=== PATIENT | female | born 1955 | race Caucasian/White ===

== ENCOUNTER 2021-04-12 17:56 | Emergency (ER) | payer MEDICARE, SELFPAY ==
--- NOTE | ~2021-04-12 | XR_ITS ---
XR tibia fibula RT 2V DATE: 04/12/2021 18:21 INDICATION: Fall. Lower tibial and fibular pain TECHNIQUE: AP and lateral views COMPARISON: None FINDINGS: There is a linear oblique fracture of the distal fibular shaft with approximately one corti bernice width lateral displacement. There is a transverse fracture of the medial malleolus, with minimal displacement. The posterior mall eolus appears intact and the ankle mortise appears preserved. There is soft tissue swelling at the an kle. Prominent posterior and plantar calcaneal enthesopathy. IMPRESSION: Distal fibular shaft and medial malleolar fractures Reviewed, dictated and finalized at location A.
--- NOTE | ~2021-04-12 | XR_ITS ---
XR ankle RT 2V DATE: 04/12/2021 18:21 INDICATION: Injury, pain TECHNIQUE: 2 views, portable technique COMPARISON: None FINDINGS: Linear oblique distal fibular shaft fracture with approximately 1 cortical width lateral di splacement. Minimally displaced medial malleolar fracture. There is generalized soft tissue swelling of the ankle. The ankle mortise appears intact. Prominent plantar and posterior calcaneal enthesopathy. IMPRESSION: Distal fibular shaft and medial malleolar fractures Reviewed, dictated and finalized at location A.
[2021-04-12 17:58] VITALS: BP 193/99; PULSE 94; RESP 20; TEMP 36.8; O2SAT 97
--- NOTE | 2021-04-12 18:13 | ED.LOWEXIN ---
HPI - Extremity Injury (Lower) General Chief Complaint: Extremity Injury, Lower Stated Complaint: FALL/ RLE PAIN Time Seen by Provider: 04/12/21 18:03 Source: patient Mode of arrival: EMS Limitations: no limitations History of Present Illness HPI Narrative: This is a 65 year old female that presents to the ER for right ankle pain after an injury today. Reports she slipped in the mud at her house and landed on her bottom. Reports she felt a pop in her right lower extremity. Since she has had pain of the lower leg and ankle. Denies hitting her head, loss of consciousness, other injuries, or numbness. Related Data Allergies Allergy/AdvReac Type Severity Reaction Status Date / Time morphine Allergy Unknown Nausea And Verified 06/09/20 11:57 Vomiting cefadroxil Allergy Unknown Verified 04/12/21 18:50 naloxone [From Talm[facility]isa NX] Allergy Unknown Verified 04/12/21 18:50 pentazocine Allergy Unknown Verified 04/12/21 18:50 Review of Systems Review of Systems: Narrative: CONSTITUTIONAL: Denies fever MUSCULOSKELETAL: Reports joint pain and myalgia. Denies back pain NEUROLOGIC: Denies numbness, or weakness. All systems reviewed & are unremarkable except as noted in HPI and below PMFSH Surgical History Surgical History (Updated 04/12/21 @ 18:16 by Henny Lincoln PA-C) History of hysterectomy History of tonsillectomy Family History Family History (System 06/09/20 @ 11:57 by Viv Cooley) Mother Family history of thyroid disease Hypertension Family history of arthritis Family history of congestive heart failure Social History Social History (System 06/09/20 @ 11:57 by Viv Cooley) Smoking status: Heavy tobacco smoker Alcohol intake: current Exam Narrative: Exam Narrative: GENERAL: Well-appearing, well-nourished, and in no acute distress. HEAD: Normocephalic, atraumatic. EYES: PERRLA and EOMI. ENT: Nares clear, no rhinorrhea or epistaxis. Mucous membranes moist. Oropharynx without tonsillar hypertrophy exudate or other lesions. NECK: Supple. No adenopathy or masses. No midline spinal tenderness CHEST: Clear to auscultation. No respiratory distress. No wheezes rales or rhonchi HEART: Regular rate and rhythm. No murmur heard. Normal peripheral pulses. BACK: No midline thoracic or lumbar spine tenderness EXTREMITIES: Normal range of motion. No edema or obvious deformity. Normal DP pulses. Normal sensation SKIN: Warm, dry, no rash. NEURO: No focal deficits. Alert and oriented x3. PSYCH: Normal mood and affect Course Vital Signs Vital signs: Vital Signs Temperature 98.3 F 04/12/21 17:58 Pulse Rate 94 04/12/21 17:58 Respiratory Rate 20 04/12/21 17:58 Blood Pressure 193/99 H 04/12/21 17:58 Pulse Oximetry 97 04/12/21 17:58 Temperature 98.3 F 04/12/21 17:58 Pulse Rate 94 04/12/21 17:58 Respiratory Rate 20 04/12/21 17:58 Blood Pressure 193/99 H 04/12/21 17:58 Pulse Oximetry 97 04/12/21 17:58 Procedures Orthopedic Splinting/Casting Injury #1: Splinting/Casting Date: 04/12/21 Splinting/Casting Time: 19:13 Side: right Lower Extremity Injury Location: ankle Lower Extremity Immobilizer: posterior splint Splint: customized in ED OCL: posterior Pre-Procedure Neuro Vascular Exam: normal Post-Procedure Neuro Vascular Exam: normal MDM - Extremity Injury (Lower) MDM Narrative Medical decision making narrative: Patient presents to the emergency department for right ankle pain after an injury today. Denies hitting her head or loss of consciousness. She is neurovascularly intact. Right ankle and tib-fib x-rays show distal fibular fracture and medial malleolar fracture. Reports she has a walker that she can use at home. Patient placed in short leg posterior will be given orthopedics for follow-up. She is stable and felt appropriate for further outpatient evaluation. She was given warnings to return to the ER
== END 2021-04-12 19:34 | disposition home or self-care (01) ==
PROVIDERS: Emergency Provider Emergency Medicine; PCP Internal Medicine
DX: S82.831A Other fracture of upper and lower end of right fibula, initial encounter for closed fracture (principal); S82.51XA Displaced fracture of medial malleolus of right tibia, initial encounter for closed fracture; W01.0XXA Fall on same level from slipping, tripping and stumbling without subsequent striking against object, initial encounter
CPT/HCPCS: 29515; 73590; 73600; 99284

== ENCOUNTER → 2022-05-24 14:17 | Outpatient (CLI) | payer MEDICARE, SELFPAY ==
--- NOTE | ~2022-05-24 | MR_ITS ---
EXAMINATION: MR shoulder LT wo con DATE: 05/24/2022 15:01 INDICATION: Left shoulder pain TECHNIQUE: Magnetic resonance imaging (MRI) of the left shoulder was performed without intravenous co ntrast. Sequences included axial PD-weighted FS FSE, coronal oblique PD-weighted FS FSE, coronal obli que T2-weighted FS FSE, sagittal PD-weighted FS FSE, and sagittal T1-weighted SE. COMPARISON: None. FINDINGS: Coracoacromial arch: The acromion undersurface is curved in morphology (type II). Small anterior subacromial spur at the a cromial insertion of the normal coracoacromial ligament. Moderate acromioclavicular osteoarthritis. Rotator cuff: Mild to moderate supraspinatus and mild infraspinatus tendinopathy. There is articular sided tear ext ending 12 mm AP along the superior facet footplate of the supraspinatus which involves approximately one half of the tendon thickness. The tear margin is retracted approximately 1.5 cm medial from the f ootplate. At the posterior margin of the tear there is a tiny full-thickness perforation with minute tract of fluid signal extending across the bursal side of the tendon. The teres minor tendon and subs capularis tendons are normal. Normal rotator cuff muscle bulk and signal. Biceps tendon, glenoid labrum and glenohumeral cartilage: Long head of the biceps tendon is normal. There is a small tear with linear increased intrasubstance signal at the 12:00 position of the glenoid labrum. The inferior labrum is diminutive with small anamaria inal osteophytes replacing portions labrum at the anteroinferior and inferior glenoid. Mild partial-t hickness cartilage loss with smooth chondral surface along the cephalad aspect of the glenoid. Fluid: Small glenohumeral joint effusion with proportional of fluid extending to the long head biceps tendon sheath. No loose osteochondral bodies. Small amount of fluid in the subacromial/subdeltoid bursa whi ch could be due to either bursitis or decompression of the glenohumeral fluid through the suspected f ull-thickness perforation of the rotator cuff. Bones: There is prominent marrow edema in the proximal metaphyseal region of the humerus surrounding a linea r low signal intensity nondisplaced fracture line, a significant portion which parallels the physis s car. Subtle cortical interruption and angulation as seen at the posterior metaphyseal region. There i s mild periosteal edema along the proximal metadiaphyseal region of the humerus. Marrow signal is oth erwise normal. IMPRESSION: 1. Nondisplaced fracture at the proximal metaphysis of the left humerus. 2. Small moderate severity partial-thickness articular sided tear along the superior facet footplate of the supraspinatus tendon with tiny likely full-thickness component of the tear at the posterior ma rgin of the tear. 3. Mild glenohumeral osteoarthritis with likely chronic degeneration degeneration along the inferior glenoid labrum and very small tear at the superior labrum. 4. Moderate acromioclavicular osteoarthritis. Reviewed, dictated and finalized at location B. IMPRESSION: 1. Nondisplaced fracture at the proximal metaphysis of the left humerus. 2. Small moderate severity partial-thickness articular sided tear along the sup erior facet footplate of the supraspinatus tendon with tiny likely full-thickne ss component of the tear at the posterior margin of the tear. 3. Mild glenohumeral osteoarthritis with likely chronic degeneration degenerati on along the inferior glenoid labrum and very small tear at the superior labrum . 4. Moderate acromioclavicular osteoarthritis.
== END ==
PROVIDERS: PCP Internal Medicine; Visit Provider Orthopaedic Surgery
DX: M19.012 Primary osteoarthritis, left shoulder (principal); M75.102 Unspecified rotator cuff tear or rupture of left shoulder, not specified as traumatic; S42.302A Unspecified fracture of shaft of humerus, left arm, initial encounter for closed fracture
CPT/HCPCS: 73221

== ENCOUNTER → 2022-06-05 11:47 | Outpatient (CLI) | payer MEDICARE, SELFPAY ==
--- NOTE | ~2022-06-05 | CT_ITS ---
EXAMINATION: CT diagnostic chest wo con DATE: 06/05/2022 12:02 INDICATION: Pulmonary nodule TECHNIQUE: Computed tomography (CT) of the chest was performed without intravenous contrast. The dose -length product (DLP) was 241.43 mGy-cm. Automated exposure control and iterative reconstruction tech nique were employed. COMPARISON: None FINDINGS: There is a 7 mm nodule in the medial aspect of the right lower lobe on image 76. There is m ild dependent atelectasis. The lungs are free of focal airspace opacities. Mild emphysema is noted. N o pathologically enlarged thoracic lymph nodes are identified. The heart size is normal. There is bernice cified coronary artery atherosclerosis. There are bilateral breast implants with collapse of the left breast implant. There is moderate thoracic spondylosis. IMPRESSION: 1. 7 mm nodule of the right lower lobe. Recommend correlation with any available prior imaging. If no ne is available, follow-up CT in 6-12 months is recommended. Reviewed, dictated and finalized at location B. IMPRESSION: 1. 7 mm nodule of the right lower lobe. Recommend correlation with any availabl e prior imaging. If none is available, follow-up CT in 6-12 months is recommend ed.
== END ==
PROVIDERS: PCP Internal Medicine
DX: R91.1 Solitary pulmonary nodule (principal); F17.210 Nicotine dependence, cigarettes, uncomplicated
CPT/HCPCS: 71250

== ENCOUNTER → 2022-12-27 12:57 | Outpatient (CLI) | payer MEDICARE, SELFPAY ==
--- NOTE | ~2022-12-27 | DEXA_ITS ---
Bone Density Report Name: MAHSA SAUCEDA Age: 67 Sex: Female Ethnicity: White Date of : 1955 Indication: postmenopausal; screening for osteoporosis; height loss; prior fracture; hysterectomy; Referring Provider: CELESTINO, [facility]ANIS [facility] Study: Bone densitometry was performed. Exam Date: December 27, 2022 Accession number: [id number] Bone Density: Region BMD T-score Z-score Classification AP Spine (L1, L3, L4) 1.155 0.9 2.9 Normal Femoral Neck (Left) 0.755 -0.9 0.8 Normal Total Hip (Left) 0.892 -0.4 1.0 Normal Femoral Neck (Right) 0.690 -1.4 0.3 Osteopenia Total Hip (Right) 0.873 -0.6 0.8 Normal Total Hip Mean 0.883 -0.5 0.9 Normal World Health Organization criteria for BMD impression classify patients as: Normal (T-score at or above -1.0), Osteopenia (T-score between -1.0 and -2.5), or Osteoporosis (T-score at or below -2.5). 10-year Fracture Risk(1): Major Osteoporotic Fracture 14% Hip Fracture 2.6% Reported Risk Factors: [place] (), Neck BMD=0.690, BMI=36.7, previous fracture, smoking (1) FRAX(R) Version 3.08. Fracture probability calculated for an untreated patient. Fracture probability may be lower if the patient has received treatment. Clinical Information Provided by Patient: Has had a low trauma fracture Smokes Has used the following medications: Calcium, vit D included in calcium Has the following medical conditions: Hysterectomy Patient maximum height was 66 Menopause Age: 41 No regular weight bearing exercise Does not regularly consume dairy products Drinks caffeinated beverages Onset of menses at age 9 Number of children 1 Impression: The patient has low bone mass, based on the Right Femoral Neck T-score. The patient has an estimated ten-year risk of hip fracture of 2.6% and an estimated ten-year risk of major fracture of 14%, based on the WHO FRAX algorithm. The patient has risk factors, including: smoking, previous fracture. Discussion: BONE DENSITY IS LOW AT ONE OR MORE SKELETAL SITES. This patient's lowest T-score is low at one or more skeletal sites. It meets the World Health Organization's (WHO) criteria for ?low bone mass? (T-score between -1.0 and -2.5). The patient's 10-year risk of fracture as calculated by FRAX is less than the threshold where pharmacological therapy is recommended by the National Osteoporosis Foundation (NOF). However, all treatment decisions require clinical judgment and consideration of individual patient factors, including patient preferences, comorbidities, previous drug use, risk factors not captured in the FRAX model (e.g., frailty, falls, vitamin D deficiency, increased bone turnover, interval significant decline in bone density) and possible under or overestimation of fracture risk by FRAX. The patient should follow
== END ==
PROVIDERS: PCP Internal Medicine; Visit Provider Internal Medicine
DX: Z13.820 Encounter for screening for osteoporosis (principal); M85.851 Other specified disorders of bone density and structure, right thigh
CPT/HCPCS: 77080

== ENCOUNTER → 2023-05-30 08:46 | Outpatient (CLI) | payer MEDICARE, SELFPAY ==
--- NOTE | ~2023-05-30 | CT_ITS ---
EXAMINATION: CT abdomen pelvis w con DATE: 05/30/2023 09:19 INDICATION: Right lower quadrant abdominal pain TECHNIQUE: Computed tomography (CT) of the abdomen and pelvis was performed with 100 CC Omnipaque 350 intravenous contrast. Automated exposure control and iterative reconstruction technique were employe d. Exam dose: 1036.90 mGy-cm total exam DLP. COMPARISON: None. FINDINGS: There is very prominent up to approximately 2.8 by 4.5 cm dense calcification on the upperm ost axial image, in the lower aspect of the right breast. Mammographic correlation is recommended. Normal heart size. No pericardial or pleural effusion. The lung bases are clear. Minimal bilateral lower lobe dependent atelectasis. The liver, gallbladder, bile ducts, spleen, pancreas, pancreatic duct and adrenal glands are unremark able. Several up to 4 mm probable right renal cysts, too small to definitively characterize. Approximately 5.7 mm lower pole left renal cyst. No urinary tract calculus or hydroureteronephrosis. The urinary bladder is unremarkable. Status post hysterectomy. There is extensive abdominal aortic and iliac arterial calcifications; no abdominal aortic aneurysm. No intraperitoneal or retroperitoneal or pelvic mass lesion or adenopathy or ascites. Normal appendix. Diverticulosis of left and right colon; no CT evidence of diverticulitis. There is a prominent amount of fecal material in the rectum and colon. No bowel obstruction, bowel wall thicken ing, pneumatosis or intraperitoneal free air is detected. Small fat-containing umbilical hernia. There is degenerative spurring and disc disease in the lower thoracic spine and multilevel degenerati ve disc disease of the lumbar spine, most severe at L3-4, severe at L2-3 with associated mild retroli sthesis. There is moderately severe degenerative disc disease at L5-S1. There is prominent degenerative change at the apophyseal joints of the lumbar spine, with associated grade 1 anterolisthesis at L5-S1. There is no apparent cysts tissue is osteolytic or osteoblastic lesion. IMPRESSION: Normal appendix Diverticulosis of the colon; no evidence of diverticulitis Status post hysterectomy Bilateral small renal cysts Large calcification in the lower right breast; mammographic correlation is recommended Reviewed, dictated and finalized at Location A. Reviewed, dictated and finalized at location B. IMPRESSION: Normal appendix Diverticulosis of the colon; no evidence of diverticulitis Status post hysterectomy Bilateral small renal cysts Large calcification in the lower right breast; mammographic correlation is lizeth mmended
[2023-05-30 09:09] LABS: Estimated Glomerular Filt Rate > 60
== END ==
PROVIDERS: PCP Internal Medicine; Visit Provider Internal Medicine
DX: R10.31 Right lower quadrant pain (principal); M25.561 Pain in right knee; K57.30 Diverticulosis of large intestine without perforation or abscess without bleeding; N28.1 Cyst of kidney, acquired
CPT/HCPCS: 73564; 74177; Q9967

== ENCOUNTER 2025-02-05 11:57 | Emergency (ER) | payer MEDICARE, SELFPAY ==
[2025-02-05] VITALS (7 sets, daily range): BP systolic 136–208; BP diastolic 67–101; PULSE 68–75; RESP 11–15; TEMP 36.7; O2SAT 99–100
--- NOTE | ~2025-02-05 | XR_ITS ---
XR chest 2V 02/05/2025 13:12 Indication: Weakness Procedure: 2 view chest Comparison: No prior studies for comparison. Findings: Heart size normal. No focal air space disease, pulmonary edema, pleural effusion or suspect ed pneumothorax. There is a calcified right breast implant. There is dextroscoliosis of the thoracic spine. Impression: 1: No acute cardiopulmonary disease. Reviewed, dictated and finalized at location A. Impression: 1: No acute cardiopulmonary disease.
--- NOTE | 2025-02-05 12:14 | ECG_ITS ---
Test Date: 2025-02-05 12:19:24 Measurements Intervals [place] Rate: 69 P: 54 SC: 196 QRS: 10 QRSD: 90 T: 44 QT: 391 QTc: 420 Interpretive Statements SINUS RHYTHM WITH OCCASIONAL VENTRICULAR PREMATURE COMPLEXES No previous ECG available for comparison Electronically Signed On 02-05-2025 14:36:41 CDT by Yandel Baron M.D.
[2025-02-05 12:23] LABS: Basophils Percent Auto 0.4 % (0.2-1.2); Eosinophils Absolute Auto 0.1 K/mm3 (0-0.3); Eosinophils Percent Auto 1.2 % (0-4.4); Hematocrit 37.9 % (37.0-47.0); Immature Granulocyte Absolute 0.04 K/mm3 (0.00-0.031); Immature Granulocyte Percent A 0.4 % (0-0.5); Lymphocytes Absolute Auto 2.25 K/mm3 (0.9-3.2); Lymphocytes Percent Auto 22.6 % (18.3-44.2); Mean Corpuscular HGB Conc 34.3 g/dl (32-36); Mean Corpuscular Hemoglobin 30.8 pg (26-34); Mean Corpuscular Volume 89.8 fl (80-100); Mean Platelet Volume 8.8 fl (7.4-10.4); Monocytes Absolute Auto 0.5 K/mm3 (0.1-0.6); Neutrophils Percent Auto 70.4 % (45.5-73.1); Platelet Count Result 253 k/mm3 (150-375); Red Blood Count 4.22 M/mm3 (4.2-5.4); Red Cell Distribution Width 12.3 % (11.5-14.5); White Blood Count 9.9 K/mm3 (4.5-10.0)
--- NOTE | 2025-02-05 12:25 | PC.NURSE ---
Patient was able to walk from EMS stretcher to ER bed without difficulty.
[2025-02-05 12:32] LABS: Alanine Aminotransferase 21 U/L (6-35); Albumin Level 4.4 g/dL (3.5-5.1); Alkaline Phosphatase 78 U/L (38-126); Anion Gap 12 mmol/L (4-12); Aspartate Amino Transferase 24 U/L (14-36); Bilirubin,Total 0.7 mg/dL (0.2-1.3); Blood Urea Nitrogen 11 mg/dL (7-17); Calcium 9.4 mg/dL (8.4-10.2); Carbon Dioxide 25 mmol/L (22-30); Chloride 92 mmol/L (98-107); Estimated CRCL calculation 78 ml/min; Estimated Glomerular Filt Rate > 60; Glucose 144 mg/dL (65-110); Potassium 3.7 mmol/L (3.4-5.0); Sodium 129 mmol/L (137-145)
--- OUTSIDE RECORDS SUMMARY | 2025-02-05 13:43 | XMS_ITS | Encounter Summary ---
Author Organization [facility] Address [address] [place] [address] Care Team Providers Care Inorganic Chemical Technician Name Role Phone Ora Senior MD Primary Care Provider [phone] Pa Llanos MD Primary Care Provider [phone] Allie Martin MD Primary Care Provider [phone] Allie Martin MD Unavailable [phone] Juan Flores MD Unavailable Unavailable Latisha Slater ENGAGEMENT LIAISON-SHANK PINNER Unavailable [phone] Ora Senior MD Unavailable [phone] Encounter Details Date Type Department Care Team (Late st Contact Info) Description 08/24/2016 Lab Requisition [facility] [address] [place] [address] Unknown, Provider Social History Tobacco Use Types Packs/Day Years Used Date Smoking Tobacco: Never Assessed Sex and Gender Information Value Date Recorded Sex Assigned at Not on file Gender Identity Not on file Sexual Orientation Not on file documented as of this encounter Plan of Treatment Not on file documented as of this encounter Procedures Procedure Name Priority Date/Time Associated Diagnosis Comments RUBEOLA ANTIBODY IGG Routine 08/24/2016 9:10 AM CDT MUMPS ANTIBODY IGG Routine 08/24/2016 9: 10 AM CDT VARICELLA ZOSTER ANTIBODY IGG Routine 08/24/2016 9:10 AM CDT RUBELLA ANTIBODY IGG Routine 08/24/2016 9:10 AM CDT documented in this encounter Results * VARICELLA ZOSTER ANTIBODY IGG (08/24/2016 9:10 AM CDT) [facility] Varicella zoster Virus Antibody IgG 532 Immune >165 index 08/26/2016 12:09 PM CDT [facility] ([facility]) Comment: Negative <135 Equivocal 135 - 165 Positive >165 A positive result generally indicates exposure to the pathogen or administration of specific immunoglobulins, but it is not indication of active infection or stage of disease. Blood BLOOD SPECIMEN / Unknown Venipuncture / Unknown 08/24/2016 9:10 AM CDT 08/24/2016 7:01 PM CDT [facility] - 08/26/2016 12:09 PM CDT Performed at: [address] [place] [id number] Transportation Clerk: Pancho Alvarez PhD, Phone: [phone] Provider Unknown LAB - CHEMISTRY SVEN MELENDEZ [facility] ([facility]) [address] [place] [address] * RUBEOLA ANTIBODY IGG (08/24/2016 9:10 AM CDT) [facility] Measles (Rubeola) Antibody IgG 147.0 Immune >29.9 AU/mL 08/26/2016 12:09 PM CDT [facility] ([facility]) Comment: Negative <25.0 Equivocal 25.0 - 29.9 Positive >29.9 Presence of antibodies to Rubeola is presumptive evidence of immunity except when acute infection is suspected. Blood BLOOD SPECIMEN / Unknown Venipuncture / Unknown 08/24/2016 9:10 AM CDT 08/24/2016 7:01 PM CDT [facility]) - 08/26/2016 12:09 PM CDT Performed at: [address] [place] [id number] Transportation Clerk: Pancho Alvarez PhD, Phone: [phone] Provider Unknown LAB - CHEMISTRY SVEN MELENDEZ Performing Organization Address City/[facility]/ZIP Co de Phone Number [facility] ([facility]) [address] [place] [address] * MUMPS ANTIBODY IGG (08/24/2016 9:10 AM CDT) [facility] Mumps Virus Antibody IgG Index 289.0 Immune >10.9 AU/mL 08/26/2016 12:09 PM CDT [facility] ([facility]) Comment: Negative <9.0 Equivocal 9.0 - 10.9 Positive >10.9 A positive result generally indicates past exposure to Mumps virus or previous vaccination. Blood BLOOD SPECIMEN / Unknown Venipuncture / Unknown 08/24/2016 9:10 AM CDT 08/24/2016 7:01 PM CDT Narrative [facility] ([facility]) - 08/26/2016 12:09 PM CDT Performed at: [address] [place], [place] [id number] [place], [place] [id number] Transportation Clerk: Pancho Alvarez PhD, Phone: [phone] Provider Unknown LAB - CHEMISTRY SVEN MELENDEZ Performing Organization Address City/[facility] Co de Phone Number [facility] ([facility]) [address] [place] [address] * RUBELLA ANTIBODY IGG (08/24/2016 9:10 AM CDT) [facility] Rubella Antibody IgG Positive - Immune 08/24/2016 7:56 PM CDT [facility] Blood BLOOD SPECIMEN / Unknown Venipuncture / Unknown 08/24/2016 9:10 AM CDT 08/24/2016 7:01 PM CDT Provider Unknown LAB - SEROLOGY ORDER CHUN Performing Organization Address City/[facility]/ZIP Co de Phone Number [facility] [address] [place] [address] documented in this encounter Visit Diagnoses Not on filedocumented in this encounter Additional Health Concerns Infection Onset Date Last Indicated Resolved Time COVID-19 Under Investigation 04/06/2020 04/06/2020 04/07/2020 6:09 AM CDT documented as of this encounter Care Teams Inorganic Chemical Technician Relationship Specialty Start Date End Date Ora Senior MD PCP - General Family Medicine 12/19/16 03/27/18 Pa Llanos MD [address] [place] [id number] PCP - General Internal Medicine 03/28/18 09/04/19 [place] [address] [place], [place] [id number] PCP - General Internal Medicine 09/05/19 [place] [address] [place], [place] [address] PCP - Attributed-[facility] 09/12/19 11/11/19 Latisha Slater, ENGAGEMENT LIAISON-SHANK PINNER [address] [place] [address] PCP - Attributed-[facility] 05/12/20 04/30/23 Ora Senior MD [address] [address] PCP - Attributed-[facility] Choice 04/27/17 05/20/19 [place] [address] [place] [address] Infectious Disease 05/19/20 documented as of this encounter
--- OUTSIDE RECORDS SUMMARY | 2025-02-05 13:43 | XMS_ITS | Referral Summary ---
Author Organization [facility] Address [address] [place] [address] Care Team Providers Care Health Services Administrator Name Role Phone Marcus Pandya MD Primary Care Provider [phone] Encounters Date Type Department Care Team Description 01/14/2025 1:32 PM NOVELTY WORKER - 01/14/2025 11:59 PM NOVELTY WORKER Hospital Encounter [facility] [address] [place] [address] Encounter for screening mammogram for malignant neoplasm of breast; H/O bilateral breast implants Discharge Disposition: Discharge to home or self care 01/14/2025 12:50 PM NOVELTY WORKER - 01/14/2025 11:59 PM NOVELTY WORKER Hospital Encounter [facility] [address] [place] [address] Cigarette nicotine dependence without complication Discharge Disposition: Discharge to home or self care 01/07/2025 1:30 PM NOVELTY WORKER Office Visit [facility] [address] [place] [address] Maria Luisa Macdonald NP JAYNE (obstructive sleep apnea) (Primary Dx) from Last 3 Months Allergies Active Allergy Reactions Criticality Noted Date Comments Yovani Inhibitors Cough Low 11/21/2017 Latex Rash Medium 09/06/2015 Rash Morphine Nausea And Vomiting,Vomiting Medium 09/06/2015 projectile vomiting Pentazocine Other (See comments) Low 09/06/2015 FEELS GOOFY Medications aspirin 81 mg enteric coated tablet Take 1 tablet every day by oral route. Active atorvastatin (LIPITOR) 20 mg tablet 2 Active cyclobenzaprine (FLEXERIL) 10 mg tablet Take 1 tablet (10 mg total) by mouth 3 (three) times a day as needed 9 Active levothyroxine (SYNTHROID) 137 mcg tablet TAKE 1 TABLET EVERY DAY BEFORE BREAKFAST 0 Active losartan (COZAAR) 50 mg tablet Take 1 tablet every day by oral route in the evening for 90 days. [address] (PROTONIX) 40 mg EC tablet 2 Active traMADoL (ULTRAM) 50 mg tablet 1 tab taken (together w/ 1 tab of Tylenol 500 mg) once up to twice a day as needed 0 Active Trulicity 0.75 mg/0.5 mL pen injector 2 Active HYDROcodone-yovani taminophen (NORCO) 5-325 mg per tabletIndicatio ns:Pain Take 1 tablet by mouth every 8 (eight) hours as needed for pain 15 tablet 2 Active metoprolol XL (TOPROL-XL) 50 mg extended release tablet 3 Active chlorthalidone (HYGROTON) 25 mg tablet Take 1 tablet (25 mg total) by mouth every morning 4 Active metFORMIN XR (GLUCOPHAGE XR) 500 mg 24 hr tablet 3 Active telmisartan (MICARDIS) 80 mg tablet 3 Active Mounjaro 2.5 mg/0.5 mL pen injector 4 Active predniSONE (DELTASONE) 20 mg tablet Take 1 tablet (20 mg) by mouth 2 (two) times a day 10 tablet 4 Active benzonatate (TESSALON) 100 mg capsuleIndicati ons:Cough Take 1 capsule (100 mg total) by mouth every 8 (eight) hours 21 capsule 4 Active Active Problems Problem Noted Date Diagnosed Date Morbid (severe) obesity due to excess calories 0 12/19/2022 Hyperlipidemia 02/23/2022 Idiopathic scoliosis 02/23/2022 Cellulitis of face 11/10/2021 Severe acute respiratory syn drome coronavirus 2 (SARS-CoV-2) vaccination not indicated 11/22/2020 Benign essential HTN 12/19/2016 Chronic bilateral low back pain 12/19/2016 Gastroesophageal reflux disease without esophagi tis 12/19/2016 Hypothyroidism, adult 12/19/2016 JAYNE (obstructive sleep apnea) 12/19/2016 Assessment & Plan (01/07/2025 1:32 PM NOVELTY WORKER): Patient continue to wear her CPAP at 12 cm water pressure while sleeping. Her DME is [employer]. Assessment & Plan (01/02/2024 2:30 PM NOVELTY WORKER): Due to continued symptoms, the patient will continue CPAP at 12 cm water pressure. Denied need for supplies. DME [employer] Assessment & Plan (05/02/2023 2:20 PM CDT): The patient will continue CPAP therapy at 12 cm water pressure. Denied need for supplies. DME [employer]. Assessment & Plan (01/17/2023 2:49 PM NOVELTY WORKER): Due to the patient needing a new CPAP I have ordered a nocturnal polysomnogram split night protocol if necessary, no MSLT. The patient will need an order for new CPAP after the nocturnal polysomnogram is completed. Pure hypercholesterolemia 12/19/2016 Type 2 diabetes mellitus wit hout complication, without long-term current use of insulin 12/19/2016 Morbid obesity 03/09/2016 Social History Tobacco Use Types Packs/Day Years Used Date Smoking Tobacco: Every Day Cigarettes 0.5 54.2 Started: 11/12/1970 Smokeless Tobacco: Never Tobacco Cessation:Ready to Q uit: Not Asked; Counseling Given: Not Answered Comments:Info added from lung screening intake form 02/08/24 Alcohol Use Standard Drinks/Week Comments Not Currently 0 (1 standard drink = 0.6 oz pur e alcohol) Personal Safety Answer Date Recorded Have you ever been in or are you currently in a harmful physical or emotional relationship or is someone making you feel afraid or unsafe? Denies 10/31/2024 Comments No Sex and Gender Information Value Date Recorded Sex Assigned at Not on file Legal Sex Female 8:18 PM NOVELTY WORKER Gender Identity Not on file Sexual Orientation Not on file Last Filed Vital Signs Vital Sign Reading Time Taken Comments Blood Pressure 175/83 01/07/2025 1:22 PM NOVELTY WORKER Pulse 72 01/07/2025 1:22 PM NOVELTY WORKER Temperature 37 C (98.6 F) 10/31/2024 9:59 AM NOVELTY WORKER Respiratory Rate 18 01/07/2025 1:22 PM NOVELTY WORKER Oxygen Saturation 96% 01/07/2025 1:22 PM NOVELTY WORKER Inhaled Oxygen Concentration - - Weight 104.3 kg (230 lb) 01/14/2025 1:19 PM NOVELTY WORKER Height 160 cm (5' 3 ) 01/14/2025 1:19 PM NOVELTY WORKER Body Mass Index 40.74 01/14/2025 1:19 PM NOVELTY WORKER Plan of Treatment Not on file Procedures Procedure Name Priority Date/Time Associated Diagnosis Comments SCREENING MAMMOGRAM BILATERAL W AVINASH W IMPLANTS Schedule Routine, Read Routine (OP Routine) 01/14/2025 1:58 PM NOVELTY WORKER Encounter for screening mammogram for malignant neoplasm of breast H/O bilateral breast implants CT LUNG CANCER SCREENING Schedule Routine, Read Routine (OP Routine) 01/14/2025 1:18 PM NOVELTY WORKER Cigarette nicotine dependence without complication HEMOGLOBIN A1C Routine 01/08/2015 8:03 AM NOVELTY WORKER LIPID PANEL Routine 01/08/2015 8:03 AM NOVELTY WORKER from Last 3 Months or Most Recently Relevant to Health Maintenance Results * Screening Mammogram Bilateral W Avinash W Implants (01/14/2025 1:58 PM NOVELTY WORKER) Anatomical Region Laterality Modality Breast Bilateral Mammography Impressions 01/14/2025 2:49 PM NOVELTY WORKER BI-RADS ATLAS category (overall): 2 - Benign Ruptured bilateral breast implants. There is no mammographic evidence of malignancy. A 1 year screening mammogram is recommended. The patient has been or will be contacted. We recommend annual screening mammography for women at average risk of breast cancer beginning at age 40, based on guidelines of the [employer] (ACR Practice Parameter for the Performance of Screening and Diagnostic Mammography) and [place] [employer]. For women with and elevated risk of breast cancer, please refer to the ACR Practice Parameter for specific screening recommendations. The patient will be entered into a reminder system with a target due date of 1 year for her next screening exam. Narrative 01/14/2025 2:49 PM NOVELTY WORKER Screening Mammogram Bilateral W Avinash W Implants: 01/14/25 The study was acquired using full field digital technology and interpreted from soft copy. 2D digital mammographic views, as well as 3D digital tomosynthesis were performed in the CC and MLO projections. This study was resulted using Computer-Aided Detection (CAD). CLINICAL: Encounter for screening mammogram for malignant neoplasm of breast H/O bilateral breast implants. No relevant medical history has been documented for this patient. History of breast cancer in Neg Hx. COMPARISONS: 11/02/2023 MRI Breast Bilateral W WO Contrast 03/28/2023 Screening Mammogram Bilateral W Avinash W Implants 02/02/2022 Screening Mammogram Bilateral W Avinash W Implants BREAST TISSUE: There are scattered areas of fibroglandular density. FINDINGS: Bilateral breast implants are again noted. There is extracapsular silicone on the right consistent with extracapsular implant rupture, unchanged. The left saline implant is collapsed, unchanged. No suspicious masses, suspicious calcifications, or other suspicious findings are seen within either breast. There has been no suspicious change. Marcus Pandya MD IMG MAMMO PROCEDURES Final Resul t * CT Lung Cancer Screening (01/14/2025 1:18 PM NOVELTY WORKER) Anatomical Region Laterality Modality Chest N/A Computed Tomogra phy 01/16/2025 7:49 AM NOVELTY WORKER Narrative 01/16/2025 8:01 AM NOVELTY WORKER EXAM DESCRIPTION: CT LUNG CANCER SCREENING REASON FOR STUDY: Screening CT of the chest in a current smoker with a 30.5 pack year smoking history. Additional history: None. TECHNIQUE: Low dose CT scan of the chest was performed without intravenous contrast using helical scanning technique. The exam extends from the lung apices through the lung bases. Automatic exposure control was used as a dose optimization technique. NOTE: This study was performed for the specific purposes of lung cancer screening and is not an alternative to diagnostic chest CT. RADIATION DOSE: CT dose index volume (CTDIvol) = 10.48 mGy COMPARISON: 01/10/2024. FINDINGS: SMOKING RELATED LUNG DISEASE: Minimal emphysema. Bronchial wall thickening suggests chronic bronchitis. LUNG NODULES: There is a nodule in the medial right lower lobe adjacent to the right lower lobe pulmonary vein semisolid 1.0 x 0.6 cm mean 0.8 cm (series 3, image 151) which is unchanged. There is 0.5 cm nodule medial superior right lower lobe adjacent to the tracheal bifurcation at the nagi and major fissure (series 3, image 90), previously 0.5 cm unchanged. There is a small nodule in the lingula 0.4 cm (image 164) unchanged. No new pulmonary nodules are seen. CORONARY ARTERY CALCIFICATION: Coronary artery calcifications are noted. OTHER: Central airways are patent. There is some mild bronchial wall thickening especially in the lower lobes. There is peripheral reticular interstitial thickening and ground-glass opacity evidence of zhsl-iq-qexiqmzj fibrosis without overt honeycombing. No mediastinal or hilar mass. Coronary artery calcifications are seen. Bilateral breast prostheses which are calcified, the left breast prosthesis is ruptured and deflated. No significant abnormality Achilles over abdomen. Bone windows show degenerative changes in the spine with areas of vacuum disc phenomena. No acute or aggressive osseous abnormality. IMPRESSION: Unchanged pulmonary nodules measuring up to 0.8 cm. Mild emphysema and evidence of chronic bronchitis. Pygc-or-hwkidxgn pulmonary fibrosis. Lung-RADS category 2: Benign appearance or behavior. Recommendation: Low dose Screening CT of chest in 12 months. THIS IS AN ELECTRONICALLY VERIFIED FINAL REPORT 01/16/2025 8:01 AM - Electronically signed by Magnus Conklin M.D. T: Report ID: [id number] Reading Location: [place] [address] Procedure Note Magnus Conklin Jr., MD - 01/16/2025 EXAM DESCRIPTION: CT LUNG CANCER SCREENING REASON FOR STUDY: Screening CT of the chest in a current smoker with a30.5 pack year smoking history. Additional history: None. TECHNIQUE: Low dose CT scan of the chest was performed without intravenous contrast using helical scanning technique. The exam extends from the lung apices through the lung bases. Automatic exposure control was used as adose optimization technique. NOTE: This study was performed for the specific purposes of lung cancer screening and is not an alternative to diagnostic chest CT. RADIATION DOSE: CT dose index volume (CTDIvol) = 10.48 mGy COMPARISON: 01/10/2024. FINDINGS: SMOKING RELATED LUNG DISEASE: Minimal emphysema. Bronchialwall thickening suggests chronic bronchitis. LUNG NODULES: There is a nodule in the medial right lower lobe adjacentto the right lower lobe pulmonary vein semisolid 1.0 x 0.6 cm mean 0.8 cm(series 3, image 151) which is unchanged. There is 0.5 cm nodule medial superior right lower lobe adjacent to the tracheal bifurcation at the nagi andmajor fissure (series 3, image 90), previously 0.5 cm unchanged. There is asmall nodule in the lingula 0.4 cm (image 164) unchanged. No new pulmonarynodules are seen. CORONARY ARTERY CALCIFICATION: Coronary artery calcifications are noted. OTHER: Central airways are patent. There is some mild bronchial wall thickening especially in the lower lobes. There is peripheral reticular interstitial thickening and ground-glass opacity evidence glnbax-lv-fbfmmpkh fibrosis without overt honeycombing. No mediastinal or hilar mass. Coronary artery calcifications are seen. Bilateral breast prostheses which are calcified, the left breastprosthesis is ruptured and deflated. No significant abnormality Achilles over abdomen. Bone windows show degenerative changes in the spine with areas of vacuumdisc phenomena. No acute or aggressive osseous abnormality. IMPRESSION: Unchanged pulmonary nodules measuring up to 0.8 cm. Mild emphysema and evidence of chronic bronchitis. Bexv-je-bsnjfyvi pulmonary fibrosis. Lung-RADS category 2: Benign appearance or behavior. Recommendation: Low dose Screening CT of chest in 12 months. THIS IS AN ELECTRONICALLY VERIFIED FINAL REPORT 01/16/2025 8:01 AM - Electronically signed by Magnus Conklin M.D. T: Report ID: [id number] Reading Location: [place] [address] us Rox Silvestre MD [facility] CT PROCEDURES Final Resul t * (ABNORMAL) Hemoglobin A1c (01/08/2015 8:03 AM NOVELTY WORKER) Hemoglobin A1c % 8.6(H) 4.8 - 5.9 % Comment: As of 2010 Method: GIO Fabián 6000 using turbidometric inhibition immunoassay procedure. Results obtained are comparable to results obtained using previous methodology (HPLC). [place] [employer] recommends that the goal of therapy should be an A1C hemoglobin of <7%. Reevaluate the treatment regimen in patients with an A1C >8%. 01/08/2015 8:03 AM NOVELTY WORKER 01/08/2015 8:21 AM [facility] [employer] HISTORICAL RESULTS - 01/08/2015 8:35 AM NOVELTY WORKER FASTING 12 HOURS us Marcus Pandya MD LAB BLOOD ORDERABLES Final Resul t [facility] [employer] HISTORICAL RESULTS * Lipid panel (01/08/2015 8:03 AM NOVELTY WORKER) Triglycerides 150 0 - 199 mg/dL 01/08/2015 9:06 AM [facility] [employer] HISTORICAL RESULTS Comment:12 hr pc highly lizeth mmended for Triglyceride Cholesterol 187 0 - 199 mg/dL 01/08/2015 9:06 AM [facility] [employer] HISTORICAL RESULTS Comment: Borderline: 200-239 High Risk: >239 HDL Cholesterol 49 40 - 60 mg/dL 01/08/2015 9:06 AM [facility] [employer] HISTORICAL RESULTS Comment: Major Risk < 40 mg/dL Moderate Risk 40-60 mg/dL Negative Risk > 60 mg/dL LDL Cholesterol, Calc 108 0 - 130 mg/dL 01/08/2015 9:06 AM [facility] [employer] HISTORICAL RESULTS Comment:High Risk > 159 mg/d L Cholesterol/HDL Ratio 3.8 01/08/2015 9:06 AM [facility] [employer] HISTORICAL RESULTS Comment: Cholesterol / HDL Ratio 3.5:1 or less is desirable. Cholesterol / HDL Ratio greater than 5:1 is considered higher risk for developing heart disease. 01/08/2015 8:03 AM NOVELTY WORKER 01/08/2015 8:21 AM [facility] [employer] HISTORICAL RESULTS - 01/08/2015 9:06 AM NOVELTY WORKER FASTING 12 HOURS us Marcus Pandya MD LAB BLOOD ORDERABLES Final Resul t [facility] [employer] [facility] HISTORICAL RESULTS from Last 3 Months or Most Recently Relevant to Health Maintenance Insurance [employer] MEDICARE PPO [employer] MED[employer]ARE PPO [employer] MED[employer] PPO Care Teams Health Services Administrator Relationship Specialty Start Date End Date Marcus Pandya MD [address] [facility] [address] [place] [address] PCP - General Internal Medicine 02/06/22
--- OUTSIDE RECORDS SUMMARY | 2025-02-05 13:44 | XMS_ITS | Data Portability ---
Author Organization [facility], [employer] Address [address] [place] [address] Assessment Encounter Date Assessment Date Assessment LastModified by Organization Details LastModified Time 12/18/2023 12/18/2023 Recommends healthy nutrition, including a diet rich in fruits and vegetables, minimizing simple carbohydrates, salt, and saturated fats. Encouraged regular cardiovascular exercise such as walking at least 30 minutes daily, 5 times per week. Not available 12/18/2023 14:20:45 05/07/2024 05/07/2024 Came in with daughter (Luisana) today Not available 05/07/2024 18:57:15 09/10/2024 09/10/2024 Patient presente d to office today for their Medicare Annual Wellness Visit. Recommends healthy nutrition, including a diet rich in fruits and vegetables, minimizing simple carbohydrates, salt, and saturated fats. Encouraged regular cardiovascular exercise such as walking at least 30 minutes daily, 5 times per week. Emphasized preventive health measures and educated pt on fall prevention and community-based lifestyle interventions to help reduce health risks and promote healthy living. Not available 09/10/2024 19:48:00 Plan of Treatment Reminders Order Date Submit Date Provider Last Modified By Organization Details Last Modified Time Details Appointments ESTABLISH ED PATIENT 15 2024 02:15P Kristin Pandya MD Not available Not available Not available ESTABLISH ED PATIENT 15 2024 04:00P Kristin Pandya MD Not available Not available Not available Lab lipid panel, serum 2023 024 [facility], [address] [facility], [place], [address], 11/10/2024 08:24:42 vitamin D, 25-hydrox y, total, serum 2023 024 [facility], [address] [facility], [place], [address], 11/03/2024 10:46:20 microalbu min/creat inine, mass ratio, urine [address], [address] [place], [address], 02/05/2025 09:59:42 HbA1c (hemoglob in A1c), blood 2023 024 [facility], [address] [place], [address], 11/10/2024 08:24:42 CMP, serum or plasma [address], [address] [place], [address], 02/05/2025 09:59:42 TSH + free T4, serum 2023 024 [facility], [address] [place], [address], 11/10/2024 08:24:42 T3, free, serum or plasma [address], [address] [place], [address], 02/05/2025 09:59:42 microalbu min/creat inine, mass ratio, urine [address], [address] [place], [address], 09/10/2024 20:00:49 lipid panel, blood [address], [address] [place], [address], 09/10/2024 20:00:48 hemoglobi n A1C/hemog lobin total, QN, blood [address], [address] [place] [address], [place], [address], 09/10/2024 20:00:49 CMP, serum or plasma [address], [address] [place] [address], [address], 09/10/2024 20:00:48 TSH, serum or plasma [address], [address] [place] [address], [address], 09/10/2024 20:00:49 T4, free, serum [address], [address] [place] [address], [address], 09/10/2024 20:00:48 T3, free, serum or plasma [address], [address] [place] [address], [address], 09/10/2024 20:00:49 CBC w/ auto diff [address], [address] [place] [address], [address], 09/10/2024 20:00:48 microalbu min/creat inine, mass ratio, urine [address], [address] [place] [address], [address], 10/22/2024 13:05:39 lipid panel, blood [address], [address] [place] [address], [address], 10/22/2024 13:05:40 hemoglobi n A1C/hemog lobin total, QN, blood [address], [address] [facility], [place], [address], 10/22/2024 13:05:40 CMP, serum or plasma 2023 024 [facility], [address] [place], [address], 09/11/2024 14:38:53 TSH, serum or plasma [address], [address] [place] [address], [address], 10/22/2024 13:05:40 T4, free, serum 2023 024 [facility], [address] [place], [address], 09/11/2024 14:38:55 T3, free, serum or plasma 2023 024 [facility], [address] [facility], [place], [address], 09/11/2024 14:38:54 CBC w/ auto diff 2023 024 [facility], [address] [place], [address], 09/11/2024 14:38:52 microalbu min/creat inine, mass ratio, urine 2023 024 [email or web address] Not available 03/17/2024 09:48:38 lipid panel, blood 2023 024 [email or web address] Not available 03/17/2024 09:48:38 hemoglobi n A1C/hemog lobin total, QN, blood 2023 024 [facility], [address], [place], [address], 03/17/2024 09:48:39 CMP, serum or plasma 2023 024 [facility], [address] [facility], [place], [address], 01/28/2024 03:05:26 TSH, serum or plasma 2023 024 [facility] Not available 03/17/2024 09:48:38 T4, free, serum 2023 024 JENNA Not available 01/28/2024 03:05:26 T3, free, serum or plasma 2023 024 JENNA Not available 01/28/2024 03:05:26 Referral gynecolog ist referral 2023 024 [facility], [address], [place], [address], 10/08/2024 08:11:27 diabetic ophthalmo logy referral 2023 024 [facility], [address] [place], [address], 10/08/2024 08:11:28 breast surgery referral 2023 024 [facility], [address] [place] [address], [address], 09/11/2024 13:00:55 gynecolog ist referral 2023 024 [facility], [address], [place], [address], 06/04/2024 08:11:37 gastroent erologist referral 2023 024 yair Gomez MD, [address], [place], [address], 06/04/2024 08:11:36 diabetic ophthalmo logy referral 2023 024 [facility], [address] [place], [address], 06/04/2024 08:11:38 breast surgery referral [address], [facility] [place], [address], 05/07/2024 19:00:47 gynecolog ist referral 2023 024 [facility], [address], [place], [address], 01/15/2024 08:15:13 gastroent erologist referral 2023 024 yair Gomez MD, [address], [place], [address], 01/15/2024 08:15:12 diabetic ophthalmo logy referral 2023 024 [facility], [address] [place], [address], 01/15/2024 08:15:14 breast surgery referral [address], [facility] [place], [address], 12/12/2024 08:25:28 Procedures None recorded. Surgeries None recorded. Imaging bone density - -- due 12/26/242023 024 yair [facility] Centralized Scheduling, Centralized Scheduling, [address], [place], [address], 11/18/2024 10:56:07 XR, chest, 2 view 2023 024 [email or web address] [place] [facility] Centralized Scheduling, Centralized Scheduling, [address] [place], [address], 09/24/2024 08:08:28 MAMMO, screening , digital, bilateral 2023 024 [facility] Centralized Scheduling, Centralized Scheduling, [place], [address], 12/09/2024 08:10:11 XR, chest, 2 view 2023 024 [facility] Patient Access Centralized Scheduling, Centralized Scheduling, [place], [address], 05/21/2024 08:24:32 MAMMO, screening , digital, bilateral 2023 024 [facility] Patient Access Centralized Scheduling, Centralized Scheduling, [place], [address], 08/05/2024 08:15:38 XR, lumbar spine 2023 024 [facility] Patient Access Centralized Scheduling, Centralized Scheduling, [facility] [place], [address], 12/25/2023 08:16:41 Medication Orders atorvasta tin 20 mg tablet 2023 [facility]65372, [address], [place], [place], [id number], 11/03/2024 10:46:20 pantopraz ole 40 mg tablet,de layed release 2023 [facility] #01153, [address], [place], [place], [id number], 11/03/2024 10:46:19 metoprolo l succinate ER 50 mg tablet,ex tended release 24 hr 2023 [facility] #55108, [address], [place], [place], [id number], 11/03/2024 10:46:19 telmisart an 80 mg tablet 2023 [facility] #06782, [address], [place], [place], [id number], 11/03/2024 10:46:20 metformin ER 500 mg tablet,ex tended release 24 hr 2023 [facility] #95646, [address], [place], [place], [id number], 11/03/2024 10:46:19 levothyro xine 125 mcg tablet 2023 [facility] #78972, [address], [place], [place], [id number], 11/03/2024 10:46:18 tramadol 50 mg tablet 2023 [facility], [address], [place], [place], [id number], 09/14/2024 16:45:02 cyclobenz aprine 10 mg tablet 2023 [facility]35305, [address], [place], [place], [id number], 09/14/2024 16:45:28 telmisart an 80 mg tablet 2023 [facility]27740, [address], [place], [place], [id number], 09/14/2024 16:40:31 chlorthal idone 25 mg tablet 2023 [facility] #91161, [address], [place], [place], [id number], 09/14/2024 16:41:13 metoprolo l succinate ER 50 mg tablet,ex tended release 24 hr 2023 [facility] #59690, [address], [place], [place], [id number], 09/14/2024 16:42:41 atorvasta tin 20 mg tablet 2023 [facility] #49530, [address], [place], [place], [id number], 09/14/2024 16:43:47 pantopraz ole 40 mg tablet,de layed release 2023 [facility] #27841, [address], [place], [place], [id number], 09/14/2024 16:46:16 metformin ER 500 mg tablet,ex tended release 24 hr 2023 024 [facility] #01536, [address], [place], [place], [id number], 09/14/2024 16:43:11 levothyro xine 137 mcg tablet [address]07117, [address], [place], [place], [id number], 09/14/2024 22:27:16 tramadol 50 mg tablet [address] [facility], [address], [place], [address], 05/07/2024 18:54:44 telmisart an 80 mg tablet [address] [facility], [address], [place], [address], 05/07/2024 18:54:36 chlorthal idone 25 mg tablet [address] [facility], [address], [place], [address], 05/07/2024 18:54:34 metoprolo l succinate ER 50 mg tablet,ex tended release 24 hr [address] [facility], [address], [place], [address], 05/07/2024 18:54:30 atorvasta tin 20 mg tablet [address] [facility], [address], [place], [address], 05/07/2024 18:54:41 Chantix Starting Month Box 0.5 mg (11)-1 mg (42) tablets in dose pack [address] [facility], [address], [place], [address], 05/07/2024 18:54:38 Chantix Continuin g Month Box 1 mg tablet [address] [facility], [address], [place], [address], 09/10/2024 19:59:58 pantopraz ole 40 mg tablet,de layed release [address] [facility], [address], [place], [address], 05/07/2024 18:54:41 metformin ER 500 mg tablet,ex tended release 24 hr [address] [facility], [address], [place], [address], 05/07/2024 18:54:37 levothyro xine 137 mcg tablet [address] [facility], [address], [place], [address], 09/14/2024 22:27:16 azelastin e 137 mcg-fluti casone 50 mcg/spray nasal spray [address] [facility], [address] [facility], [place], [address], 05/07/2024 18:24:08 tramadol 50 mg tablet [address] [facility], [address], [place], [address], 12/18/2023 14:32:48 metoprolo l succinate ER 50 mg tablet,ex tended release 24 hr [address] [facility], [address], [place], [address], 12/18/2023 14:32:45 telmisart an 80 mg tablet [address] [facility], [address] [facility] [address], [place], [address], 12/18/2023 14:32:43 chlorthal idone 25 mg tablet [address] [facility], [address] [facility], [place], [address], 12/18/2023 14:32:43 atorvasta tin 20 mg tablet [address] [facility], [address] [facility] [address], [place], [address], 12/18/2023 14:32:41 pantopraz ole 40 mg tablet,de layed release [address] [facility], [address], [place], [address], 12/18/2023 14:32:44 metformin ER 500 mg tablet,ex tended release 24 hr [address] [facility], [address], [place], [address], 12/18/2023 14:32:45 Mounjaro 2.5 mg/0.5 mL subcutane ous pen injector 2023 024 JENNA [facility], [address], [place], [address], 05/07/2024 18:25:03 levothyro xine 137 mcg tablet 2023 024 [facility], [address], [place], [address], 09/14/2024 22:27:16 Patient TargetsNo targets recorded. Patient Instructions Encounter Date Encounter Id Patient Instructions Last Modified By Organization Details Last Modified Time 12/18/2023 [id number] advised to lose weight Not available 12/18/2023 14:32:34 advised to quit smoking Not available 12/18/2023 14:32:35 05/07/2024 [id number] advised to lose weight Not available 05/07/2024 18:54:30 advised to quit smoking Not available 05/07/2024 18:54:30 09/10/2024 [id number] advance directives: care instructions Not available 09/10/2024 20:00:49 advised to lose weight Not available 09/10/2024 20:00:48 medicare preventive services guide Not available 09/10/2024 20:00:48 advance care planning: care instructions Not available 09/10/2024 20:00:49 advised to quit smoking Not available 09/10/2024 20:00:48 Discussed and explained advance directives such as standard forms to the {{patient caregiv er patient and caregiver}}. Face to face discussion lasted for a duration of ___ minutes. Not available 09/10/2024 19:39:21 Reason for Referral Cardiac Cath Tech Referral for Right lower quadrant pain Referring Physician: Marcus Pandya, Internal Medicine, Encounter Date: 11/07/2023 Grain Combiner Referral for Gy necologic examination Referring Physician: Tarik Isabel, Encounter Date: 11/07/2023 Breast Surgery Referral for Rupture of breast implant Referring Physician: Tarik Isabel, Encounter Date: 11/07/2023 Diabetic Ophthalmology Refer ral for Type 2 diabetes mellitus without complication Referring Physician: Tarik Isabel, Encounter Date: 11/07/2023 Cardiac Cath Tech Referral for Right lower quadrant pain Referring Physician: Tarik Isabel, Encounter Date: 12/18/2023 Grain Combiner Referral for Gy necologic examination Referring Physician: Tarik Isabel, Encounter Date: 12/18/2023 Breast Surgery Referral for Rupture of breast implant Referring Physician: Tarik Isabel, Encounter Date: 12/18/2023 Diabetic Ophthalmology Refer ral for Type 2 diabetes mellitus without complication Referring Physician: Tarik Isabel, Encounter Date: 12/18/2023 Cardiac Cath Tech Referral for Right lower quadrant pain Referring Physician: Tarik Isabel, Encounter Date: 05/07/2024 Grain Combiner Referral for Gy necologic examination Referring Physician: Tarik Isabel, Encounter Date: 05/07/2024 Breast Surgery Referral for Rupture of breast implant Referring Physician: Tarik Isabel, Encounter Date: 05/07/2024 Diabetic Ophthalmology Refer ral for Type 2 diabetes mellitus without complication Referring Physician: Tarik Isabel, Encounter Date: 05/07/2024 Grain Combiner Referral for Gy necologic examination Referring Physician: Tarik Isabel, Encounter Date: 09/10/2024 Breast Surgery Referral for Rupture of breast implant Referring Physician: Tarik Isabel, Encounter Date: 09/10/2024 Diabetic Ophthalmology Refer ral for Type 2 diabetes mellitus without complication Referring Physician: Tarik Isabel, Encounter Date: 09/10/2024 Results Created Date Observation Date Name Description Value Unit Range Abnormal Flag Note LastModifiedBy Organization Detail LastModifiedTime 01/24/20 24 01/24/2024 HEMOG LOBIN A1C hemoglobin A1C 5.8 % 4.8-5. 6 high KALLI L RANGE BASED ON JONO COL 2 (DCCT /NGSP ): Non-D iabet ic: < 5.7% Pre-D iabet es: 5.7 - 6.4% Diabe casper: => 6.5% GLYCE SHAYLA CONTR OL: < 7.0% Not Available [facility] [address], [place], [address], 01/26/2024 15:41:00 01/24/20 24 01/24/2024 HEMOG LOBIN A1C estimated average glucose 120 Not Available [facility] [address], [place], [address], 01/26/2024 15:41:00 01/24/20 24 01/24/2024 COMPR EHENS ANNEL METAB OLIC PANEL sodium 137 mmol/ L 134-14 4 Not Available [facility] [address], [place], [address], 01/26/2024 15:41:01 01/24/20 24 01/24/2024 COMPR EHENS ANNEL METAB OLIC PANEL potassium 4.0 mmol/ L 3.5-5. 2 Not Available [facility] [address], [place], [address], 01/26/2024 15:41:01 01/24/20 24 01/24/2024 COMPR EHENS ANNEL METAB OLIC PANEL chloride 98 mmol/ L 97-108 Not Available [facility] [address], [place], [address], 01/26/2024 15:41:01 01/24/20 24 01/24/2024 COMPR EHENS ANNEL METAB OLIC PANEL carbon dioxide (co2) 29.0 mmol/ L 18.0-2 9.0 Not Available [facility] [address], [place], [address], 01/26/2024 15:41:01 01/24/20 24 01/24/2024 COMPR EHENS ANNEL METAB OLIC PANEL glucose 104 mg/dL 65-99 high Kalli l Fasti ng: < 100 mg/dL Impai red Fasti n - 125 mg/dL Diagn ostic of Diabe casper: => 126 mg/dL Ameri can Diabe casper Ass[facility] iatio n, 2007 Not Available [facility] [address], [place], [address], 01/26/2024 15:41:01 01/24/20 24 01/24/2024 COMPR EHENS ANNEL METAB OLIC PANEL urea nitrogen (BUN) 13 mg/dL 8-23 Not Available [facility] [address], [place], [address], 01/26/2024 15:41:01 01/24/20 24 01/24/2024 COMPR EHENS ANNEL METAB OLIC PANEL creatinine 0.87 mg/dL 0.57-1 .00 Not Available [facility] [address], [place], [address], 01/26/2024 15:41:01 01/24/20 24 01/24/2024 COMPR EHENS ANNEL METAB OLIC PANEL eGFR for nonafrican AM 64 mL/mi nute/ 1.73_ m2 >59 Not Available [facility] [address], [place], [address], 01/26/2024 15:41:01 01/24/20 24 01/24/2024 COMPR EHENS ANNEL METAB OLIC PANEL eGFR for AM 78 mL/mi nute/ 1.73_ m2 >59 MDRD Study Equat ion: The calcu lated GFR is NOT appli cable for pedia tric (< 18 years old) and > 70 year old patie nts and patie nts that are NOT of [place] . Not Available [facility] [address], [place], [address], 01/26/2024 15:41:01 01/24/20 24 01/24/2024 COMPR EHENS ANNEL METAB OLIC PANEL calcium 10.1 mg/dL 8.7-10 .3 Not Available [facility] [address], [place], [address], 01/26/2024 15:41:01 01/24/20 24 01/24/2024 COMPR EHENS ANNEL METAB OLIC PANEL protein, total 6.9 gm/dL 6.4-8. 3 Not Available [facility] [address] [facility] [address] [facility] [address], [place], [address], 01/26/2024 15:41:01 01/24/20 24 01/24/2024 COMPR EHENS ANNEL METAB OLIC PANEL albumin 4.6 gm/dL 3.5-5. 2 Not Available [facility] [address], [place], [address], 01/26/2024 15:41:01 01/24/20 24 01/24/2024 COMPR EHENS ANNEL METAB OLIC PANEL bilirubin, total 0.20 mg/dL 0.00-1 .20 Not Available [facility] [address], [place], [address], 01/26/2024 15:41:01 01/24/20 24 01/24/2024 COMPR EHENS ANNEL METAB OLIC PANEL alkaline phosphatase (ALP) 66 U/L 39-117 Not Available [facility] [address], [place], [address], 01/26/2024 15:41:01 01/24/20 24 01/24/2024 COMPR EHENS ANNEL METAB OLIC PANEL aspartate aminotransfe rase (AST) 18 U/L 0-32 Not Available [facility] [address] [facility] [address] [facility] [address], [place], [address], 01/26/2024 15:41:01 01/24/20 24 01/24/2024 COMPR EHENS ANNEL METAB OLIC PANEL alanine aminotransfe rase (ALT) 17 U/L 0-33 Not Available [facility] [address] [facility] [address] [facility] [address], [place], [address], 01/26/2024 15:41:01 01/24/20 24 01/24/2024 COMPR EHENS ANNEL METAB OLIC PANEL A/G ratio (calculated) 2.0 ratio 1.0-2. 7 Not Available [facility] [address] [facility] [address], [place], [address], 01/26/2024 15:41:01 01/24/20 24 01/24/2024 COMPR EHENS ANNEL METAB OLIC PANEL globulin (calculated) 2.3 gm/dL 1.5-3. 8 Not Available [facility] [address] [facility] [address] [facility] [address], [place], [address], 01/26/2024 15:41:01 01/24/20 24 01/24/2024 COMPR EHENS NANEL METAB OLIC PANEL BUN/creatini ne ratio (calculated) 14.9 ratio 8.0-20 .0 Not Available [facility] [address] [facility] [address] [facility] [address], [place], [address], 01/26/2024 15:41:01 01/24/20 24 01/24/2024 COMPR EHENS ANNEL METAB OLIC PANEL serum hemolysis index NORMAL index normal Not Available [facility] [address] [facility] [address] [facility] [address], [place], [address], 01/26/2024 15:41:01 01/24/20 24 01/24/2024 FREE T3 triiodothyro nine (T3), free 2.70 pg/mL 2.00-4 .40 NOTE: REFER ENCE RANGE S FOR PATIE NTS < 16 YEARS OF AGE HAS NOT BEEN VALID ATED. FOR INFOR GOLDY N ONLY. PREGN ANT FEMAL E: 1st Trime ster: 1.6-3 .3 pg/mL 2nd Trime ster: Not Estab lishe d 3rd Trime ster: 1.0-3 .2 pg/mL Not Available [facility] [address] [facility] [address] [facility] [address], [place], [address], 01/26/2024 15:41:01 01/24/20 24 01/24/2024 FREE T4 thyroxine (T4), free 1.61 NG/dL 0.82-1 .77 Not Available [facility] [address] [facility] [address] [facility] [address], [place], [address], 01/26/2024 15:41:01 01/24/20 24 01/24/2024 LIPID PANEL W/ CALC. LDL cholesterol, total 136 mg/dL 100-19 9 Not Available [facility] [address] [facility] [address] [facility] [address], [place], [address], 01/26/2024 15:41:02 01/24/20 24 01/24/2024 LIPID PANEL W/ CALC. LDL HDL cholesterol 48 mg/dL =>40 Not Available [facility] [address] [facility] [address], [place], [address], 01/26/2024 15:41:02 01/24/20 24 01/24/2024 LIPID PANEL W/ CALC. LDL LDL cholesterol (calculated) 61 mg/dL 0-99 Not Available [facility] [address] [facility] [address] [facility] [address], [place], [address], 01/26/2024 15:41:02 01/24/20 24 01/24/2024 LIPID PANEL W/ CALC. LDL triglyceride s 136 mg/dL 50-149 Not Available [facility] [address] [facility] [address], [place], [address], 01/26/2024 15:41:02 01/24/20 24 01/24/2024 LIPID PANEL W/ CALC. LDL chol/HDL ratio (calculated) 2.83 ratio 0.00-5 .00 Not Available [facility] [address], [place], [address], 01/26/2024 15:41:02 01/24/20 24 01/24/2024 LIPID PANEL W/ CALC. LDL VLDL cholesterol (calculated) 27 mg/dL 5-40 Not Available [facility] [address], [place], [address], 01/26/2024 15:41:02 01/24/20 24 01/24/2024 THYRO ID-ST IM. HORMO NE (TSH) , HIGH- SENSI TIVE thyroid-stim . hormone (TSH), hs 0.62 uIU/m L 0.27-4 .20 Not Available [facility] [address], [place], [address], 01/26/2024 15:41:02 09/10/20 24 09/10/2024 HEMOG LOBIN A1C hemoglobin A1C 6.8 % 4.8-5. 6 high KALLI L RANGE BASED ON JONO COL 2 (DCCT /NGSP ): Non-D iabet ic: < 5.7% Pre-D iabet es: 5.7 - 6.4% Diabe casper: => 6.5% GLYCE SHAYLA CONTR OL: < 7.0% Not Available [facility] [address], [place], [address], 09/11/2024 14:38:51 09/10/20 24 09/10/2024 HEMOG LOBIN A1C estimated average glucose 147 Not Available [facility] [address], [place], [address], 09/11/2024 14:38:51 09/10/20 24 09/10/2024 CBC WITH AUTO- DIFFE RENTI AL WBC 10.7 10*3/ uL 3.4-10 .8 Not Available [facility] [address], [place], [address], 09/11/2024 14:38:52 09/10/2009/10/2024 CBC WITH AUTO- DIFFE RENTI AL RBC 4.48 10*6/ uL 3.80-5 .30 Not Available [facility] [address], [place], [address], 09/11/2024 14:38:52 09/10/2009/10/2024 CBC WITH AUTO- DIFFE RENTI AL HGB 13.6 g/dL 11.1-1 5.9 Not Available [facility] [address], [place], [address], 09/11/2024 14:38:52 09/10/2009/10/2024 CBC WITH AUTO- DIFFE RENTI AL HCT 42.0 % 34.0-4 6.6 Not Available [facility] [address], [place], [address], 09/11/2024 14:38:52 09/10/2009/10/2024 CBC WITH AUTO- DIFFE RENTI AL MCV 94 fL 79-97 Not Available [facility] [address] [facility], [place], [address], 09/11/2024 14:38:52 09/10/2009/10/2024 CBC WITH AUTO- DIFFE RENTI AL MCH 30.4 pg 26.6-3 3.0 Not Available [facility] [address] [facility] [address] [facility] [address], [place], [address], 09/11/2024 14:38:52 09/10/2009/10/2024 CBC WITH AUTO- DIFFE RENTI AL MCHC 32.4 g/dL 31.5-3 5.7 Not Available [facility] [address] [facility] [address] [facility] [address], [place], [address], 09/11/2024 14:38:52 09/10/20 24 09/10/2024 CBC WITH AUTO- DIFFE RENTI AL RDW 12.6 % 11.5-1 4.5 Not Available [facility] [address], [place], [address], 09/11/2024 14:38:52 09/10/2009/10/2024 CBC WITH AUTO- DIFFE RENTI AL platelets 276 10*3/ uL 150-40 0 Not Available [facility] [address], [place], [address], 09/11/2024 14:38:52 09/10/2009/10/2024 CBC WITH AUTO- DIFFE RENTI AL MPV 10 fL 9-13 Not Available [facility] [address], [place], [address], 09/11/2024 14:38:52 09/10/2009/10/2024 CBC WITH AUTO- DIFFE RENTI AL neutrophils 61.5 % 40.0-7 4.0 Not Available [facility] [address], [place], [address], 09/11/2024 14:38:52 09/10/20 24 09/10/2024 CBC WITH AUTO- DIFFE RENTI AL absolute neutrophils 6.57 10*3/ uL 1.40-7 .00 Not Available [facility] [address], [place], [address], 09/11/2024 14:38:52 09/10/2009/10/2024 CBC WITH AUTO- DIFFE RENTI AL lymphocytes 29.7 % 14.0-4 6.0 Not Available [facility] [address], [place], [address], 09/11/2024 14:38:52 09/10/20 24 09/10/2024 CBC WITH AUTO- DIFFE RENTI AL absolute lymphocytes 3.17 10*3/ uL 0.70-3 .10 high Not Available [facility] [address] [facility] [address], [place], [address], 09/11/2024 14:38:52 09/10/20 24 09/10/2024 CBC WITH AUTO- DIFFE RENTI AL monocytes 5.5 % 4.0-12 .0 Not Available [facility] [address] [facility] [address], [place], [address], 09/11/2024 14:38:52 09/10/2009/10/2024 CBC WITH AUTO- DIFFE RENTI AL absolute monocytes 0.59 10*3/ uL 0.10-0 .90 Not Available [facility] [address] [facility] [address], [place], [address], 09/11/2024 14:38:52 09/10/20 24 09/10/2024 CBC WITH AUTO- DIFFE RENTI AL eosinophils 2.4 % 0.0-5. 0 Not Available [facility] [address], [place], [address], 09/11/2024 14:38:52 09/10/20 24 09/10/2024 CBC WITH AUTO- DIFFE RENTI AL absolute eosinophils 0.26 10*3/ uL 0.00-0 .40 Not Available [facility] [address] [facility] [address], [place], [address], 09/11/2024 14:38:52 09/10/20 24 09/10/2024 CBC WITH AUTO- DIFFE RENTI AL basophils 0.6 % 0.0-3. 0 Not Available [facility] [address], [place], [address], 09/11/2024 14:38:52 09/10/20 24 09/10/2024 CBC WITH AUTO- DIFFE RENTI AL absolute basophils 0.06 10*3/ uL 0.00-0 .20 Not Available [facility] [address], [place], [address], 09/11/2024 14:38:52 09/10/20 24 09/10/2024 CBC WITH AUTO- DIFFE RENTI AL imm. gran. 0.3 % 0.0-2. 0 Not Available [facility] [address] [facility] [address], [place], [address], 09/11/2024 14:38:52 09/10/2009/10/2024 CBC WITH AUTO- DIFFE RENTI AL abs. imm. gran. 0.03 10*3/ uL 0.00-0 .10 Not Available [facility] [address] [facility] [address] [facility] [address], [place], [address], 09/11/2024 14:38:52 09/10/20 24 09/10/2024 COMPR EHENS ANNEL METAB OLIC PANEL sodium 138 mmol/ L 134-14 4 Not Available [facility] [address] [facility] [address] [facility] [address], [place], [address], 09/11/2024 14:38:53 09/10/20 24 09/10/2024 COMPR EHENS ANNEL METAB OLIC PANEL potassium 4.0 mmol/ L 3.5-5. 2 Not Available [facility] [address] [facility] [address] [facility] [address], [place], [address], 09/11/2024 14:38:53 09/10/2009/10/2024 COMPR EHENS ANNEL METAB OLIC PANEL chloride 98 mmol/ L 98-107 Not Available [facility] [address] [facility] [address] [facility] [address], [place], [address], 09/11/2024 14:38:53 09/10/2009/10/2024 COMPR EHENS ANNEL METAB OLIC PANEL carbon dioxide (co2) 25.0 mmol/ L 18.0-2 9.0 Not Available [facility] [address] [facility] [address] [facility] [address], [place], [address], 09/11/2024 14:38:53 09/10/20 24 09/10/2024 COMPR EHENS ANNEL METAB OLIC PANEL glucose 100 mg/dL 65-99 high Kalli l Fasti n - 99 mg/dL Impai red Fasti n - 125 mg/dL Diagn ostic of Diabe casper: => 126 mg/dL Ameri can [facility]per [facility] iatio n, 2007 Not Available [facility] [address] [facility] [address], [place], [address], 09/11/2024 14:38:53 09/10/20 24 09/10/2024 COMPR EHENS ANNEL METAB OLIC PANEL urea nitrogen (BUN) 17 mg/dL 8-23 Not Available [facility] [address] [facility] [address], [place], [address], 09/11/2024 14:38:53 09/10/20 24 09/10/2024 COMPR EHENS ANNEL METAB OLIC PANEL creatinine 0.78 mg/dL 0.57-1 .00 Not Available [facility] [address] [facility] [address], [place], [address], 09/11/2024 14:38:53 09/10/20 24 09/10/2024 COMPR EHENS ANNEL METAB OLIC PANEL eGFR 82 mL/mi nute/ 1.73_ m2 >59 MDRD Study Equat ion: The calcu lated GFR is NOT appli cable for pedia tric (< 18 years old) and > 70 year old patie nts and patie nts that are NOT of [place] . Not Available [facility] [address] [facility] [address], [place], [address], 09/11/2024 14:38:53 09/10/20 24 09/10/2024 COMPR EHENS ANNEL METAB OLIC PANEL calcium 10.8 mg/dL 8.7-10 .3 high Not Available [facility] [address] [facility] [address] [facility] [address], [place], [address], 09/11/2024 14:38:53 09/10/2009/10/2024 COMPR EHENS ANNEL METAB OLIC PANEL protein, total 7.2 gm/dL 6.4-8. 3 Not Available [facility] [address] [facility], [place], [address], 09/11/2024 14:38:53 09/10/2009/10/2024 COMPR EHENS ANNEL METAB OLIC PANEL albumin 4.5 gm/dL 3.5-5. 2 Not Available [facility] [address] [facility] [address] [facility] [address], [place], [address], 09/11/2024 14:38:53 09/10/20 24 09/10/2024 COMPR EHENS ANNEL METAB OLIC PANEL bilirubin, total 0.40 mg/dL 0.00-1 .20 Not Available [facility] [address] [facility] [address], [place], [address], 09/11/2024 14:38:53 09/10/2009/10/2024 COMPR EHENS ANNEL METAB OLIC PANEL alkaline phosphatase (ALP) 74 U/L 39-117 Not Available [facility] [address] [facility] [address], [place], [address], 09/11/2024 14:38:53 09/10/2009/10/2024 COMPR EHENS ANNEL METAB OLIC PANEL aspartate aminotransfe rase (AST) 18 U/L 0-32 Not Available [facility] [address] [facility] [address] [facility] [address], [place], [address], 09/11/2024 14:38:53 09/10/20 24 09/10/2024 COMPR EHENS ANNEL METAB OLIC PANEL alanine aminotransfe rase (ALT) 16 U/L 0-33 Not Available [facility] [address] [facility] [address] [facility] [address], [place], [address], 09/11/2024 14:38:53 09/10/20 24 09/10/2024 COMPR EHENS ANNEL METAB OLIC PANEL A/G ratio (calculated) 1.7 ratio 1.0-2. 7 Not Available [facility] [address] [facility] [address] [facility] [address], [place], [address], 09/11/2024 14:38:53 09/10/20 24 09/10/2024 COMPR EHENS ANNEL METAB OLIC PANEL globulin (calculated) 2.7 gm/dL 1.5-3. 8 Not Available [facility] [address] [facility] [address] [facility] [address], [place], [address], 09/11/2024 14:38:53 09/10/20 24 09/10/2024 COMPR EHENS ANNEL METAB OLIC PANEL BUN/creatini ne ratio (calculated) 21.8 ratio 8.0-20 .0 high Not Available [facility] [address] [facility] [address] [facility] [address], [place], [address], 09/11/2024 14:38:53 09/10/20 24 09/10/2024 COMPR EHENS ANNEL METAB OLIC PANEL serum hemolysis index Normal index normal Not Available [facility] [address] [facility] [address], [place], [address], 09/11/2024 14:38:53 09/10/20 24 09/10/2024 FREE T3 triiodothyro nine (T3), free 2.89 pg/mL 2.00-4 .40 NOTE: REFER ENCE RANGE S FOR PATIE NTS < 16 YEARS OF AGE HAS NOT BEEN VALID ATED. FOR INFOR MATIO N ONLY. PREGN ANT FEMAL E: 1st Trime ster: 1.6-3 .3 pg/mL 2nd Trime ster: Not Estab lishe d 3rd Trime ster: 1.0-3 .2 pg/mL Not Available [facility] [address] [facility] [address] [facility] [address], [place], [address], 09/11/2024 14:38:54 09/10/2009/10/2024 FREE T4 thyroxine (T4), free 1.72 NG/dL 0.82-1 .77 Not Available [facility] [address] [facility] [address] [facility] [address], [place], [address], 09/11/2024 14:38:55 09/10/2009/10/2024 LIPID PANEL W/ CALC. LDL cholesterol, total 167 mg/dL 100-19 9 Not Available [facility] [address] [facility] [address] [facility] [address], [place], [address], 09/11/2024 14:38:55 09/10/2009/10/2024 LIPID PANEL W/ CALC. LDL HDL cholesterol 40 mg/dL =>40 Not Available [facility] [address] [facility] [address], [place], [address], 09/11/2024 14:38:55 09/10/2009/10/2024 LIPID PANEL W/ CALC. LDL LDL cholesterol (calculated) 65 mg/dL 0-99 Not Available [facility] [address] [facility] [address] [facility] [address], [place], [address], 09/11/2024 14:38:55 09/10/2009/10/2024 LIPID PANEL W/ CALC. LDL triglyceride s 310 mg/dL 50-149 high Not Available [facility] [address] [facility] [address] [facility] [address], [place], [address], 09/11/2024 14:38:55 09/10/20 24 09/10/2024 LIPID PANEL W/ CALC. LDL chol/HDL ratio (calculated) 4.18 ratio 0.00-5 .00 Not Available [facility] [address] [facility] [address] [facility] [address], [place], [address], 09/11/2024 14:38:55 09/10/20 24 09/10/2024 LIPID PANEL W/ CALC. LDL VLDL cholesterol (calculated) 62 mg/dL 5-40 high Not Available [facility] [address] [facility] [address] [facility] [address], [place], [address], 09/11/2024 14:38:55 09/10/20 24 09/10/2024 THYRO ID-ST IM. HORMO NE (TSH) thyroid-stim . hormone (TSH) 0.11 uIU/m L 0.27-4 .20 low Not Available [facility] [address] [facility] [address] [facility] [address], [place], [address], 09/11/2024 14:38:56 09/10/20 24 09/10/2024 MICRO ALBUM IN:CR EATIN INE RATIO , RANDO M URINE microalbumin , urine 0.23 mcg/m L not applic able Not Available [facility] [address] [facility] [address] [facility] [address], [place], [address], 09/11/2024 14:38:56 09/10/20 24 09/10/2024 MICRO ALBUM IN:CR EATIN INE RATIO , RANDO M URINE creatinine, urine 69.0 mg/dL not applic able Not Available [facility] [address] [facility] [address], [place], [address], 09/11/2024 14:38:56 09/10/20 24 09/10/2024 MICRO ALBUM IN:CR EATIN INE RATIO , RANDO M URINE microalbumin :creatinine ratio, random urine (calculated) 3.3 mg/gm _crea t. Kalli l: 0-29 mg/gm Moder ately incre ased: 30-30 0 mg/gm Sever ly incre ased: >300 mg/gm Not Available [facility] [address] [facility] [address], [place], [address], 09/11/2024 14:38:56 11/02/20 23 11/02/2023 MRI, hilario vigil, w/wo contr ast No observ ation record ed. [email or web address] [address], [address], 11/07/2023 19:36:39 01/12/20 24 01/11/2024 XR, lumba r spine No observ ation record ed. [address] Patient Access Centralized Scheduling Centralized Scheduling [address] [facility] [place], [id number], 05/07/2024 19:00:36 05/07/20 24 01/15/2024 LDCT, chest , for lung cance r scree christianne No observ ation record ed. [facility] Not Available 2023 19:47:33 11/03/20 24 10/31/2024 CT, cervi bernice spine , w/o contr ast No observ ation record ed. [email or web address] Not Available 2023 10:37:06 11/03/20 24 10/31/2024 CT, head + brain , w/o contr ast No observ ation record ed. [email or web address] Not Available 2023 10:38:00 11/03/20 24 10/31/2024 XR, facia l bones No observ ation record ed. [email or web address] Not Available 2023 10:38:56 11/03/20 24 10/31/2024 XR, chest + abdom en + pelvi s No observ ation record ed. [email or web address] Not Available 2023 10:39:56 01/15/20 25 01/14/2025 MAMMO , scree christianne, digit al, bilat eral No observ ation record ed. [address] [facility] [place], [address], 01/14/2025 19:16:33 Result Notes None recorded. Problems Name Problem SNOMED Code Status Onset Date Resolution Date Notes Provider Name and Address Organization Details Recorded Time Type 2 diabetes mellitus without complicatio n 046687168 Active MICAH French [facility] 6 11:31:18 Gastroesoph ageal reflux disease without esophagitis 395236731 Active Sharon dumont [facility] 11:31:34 Benign essential hypertensio n 2045938 Active Sharon dumont [facility] 6 11:31:45 Hypothyroid ism 71657796 Active Sharon Pandya null, [facility] 6 11:31:59 Idiopathic scoliosis 307388160 Active Sharon Pandya null, [facility] 6 11:32:17 Hyperlipide lucinda 90630776 Active Sharon Pandya null, [facility] 6 11:32:34 Morbid obesity 628755455 Active 2015 Breanna Spencer NP [address], [place], [address], [facility] 6 11:58:59 SARS-CoV-2 Active 2020 Marcus Pandya MD [address], [place], [address], [facility] 1 10:34:46 Cellulitis of face 714054507 Active 2020 Marcus Pandya MD [address], [place], [address], [facility] 1 11:21:14 Lymphocytos is 91863887 Active 2022 Marcus Pandya MD [address], [place], [address], [facility] 3 11:39:36 Essential hypertensio n 31574925 Active 2022 Marcus Pandya MD [address], [place], [address], [facility] 3 16:49:52 Leukopenia 13873210 Active 2022 Marcus Pandya MD [address], [place], [address], [facility] 3 17:03:28 Leukocytosi s 601914273 Active 2022 Marcus Pandya MD [address], [place], [address], [facility] 3 17:09:06 Osteopenia 681254128 Active 2022 Marcus Pandya MD [address], [place], [address], [facility] 3 17:11:25 Acute sinusitis 44828974 Active 2022 Marcus Pandya MD [address], [place], [address], [facility] 3 07:41:10 Allergic rhinitis 93844059 Active 2022 Marcus Pandya MD [address], [place], [address], [facility] 3 14:12:40 Right lower quadrant pain 367690160 Active 2022 Marcus Pandya MD [address], [place], [address], [facility] 3 13:55:39 Upper abdominal pain 31762351 Active 2022 Marcus Pandya MD [address], [place], [address], [facility] 3 13:55:59 Low back pain 299137572 Active 2022 Marcus Pandya MD [address], [place], [address], [facility] 3 13:57:12 Pain of right knee region 5331734007865 05 Active 2022 Marcus Pandya MD [address], [place], [address], [facility] 3 13:57:54 CT of abdomen abnormal 4266470991042 9107 Active 2022 Marcus Pandya MD [address], [place], [address], [facility] 3 13:43:35 Problem Notes None recorded. Procedures Surgical History Date Name Laterality Status Provider Name and Address Organization Details Recorded Time 03/28/20 Date of Last Mammogram completed Sharon Pandya [facility] 03/28/2023 15:23:39 01/26/20 22 Date of Last Colonoscopy completed Ivelisse Davidson [facility] 09/13/2022 16:52:45 01/16/20 22 Colonoscopy completed Marcus Pandya MD [address], [place], [address], [facility] 01/16/2022 13:46:41 09/12/20 21 Date of Last Pap Smear completed Ivelisse Davidson [facility] 01/03/2023 16:38:52 08/15/20 21 Diabetic Foot Exam completed Marcus Pandya MD [address], [place], [address], [facility] 08/15/2021 15:05:01 09/11/19 86 Breast Surgery completed [facility] 11/23/2020 09:56:26 Total Hysterectomy completed [facility] 11/23/2020 09:56:51 procedure on urinary bladder completed [facility] 11/23/2020 09:56:57 Hernia Repair completed [facility] 11/23/2020 09:57:40 Tonsillectomy completed [facility] 11/23/2020 09:56:05 Fistula repair transperine completed [facility] 11/23/2020 09:57:27 Hernia repair w/mesh completed [facility] 11/23/2020 09:58:03 varicose vein operation completed [facility] 11/23/2020 09:58:26 Imaging Results Imaging Date Name Status LastModified by Organiz ation Details LastModified Time 11/02/2023 MRI, breast, bilateral, w/wo contrast completed [address], [address], 11/07/2023 19:36:39 01/11/2024 XR, lumbar spine completed [address] Patient Access Centralized Scheduling Centralized Scheduling [address] [facility] [place], [id number], 05/07/2024 19:00:36 01/15/2024 LDCT, chest, for lung cancer screening completed [facility] Information not available 09/10/2024 19:47:33 10/31/2024 CT, cervical spine, w/o [facility] available 11/03/2024 10:37:06 10/31/2024 CT, head + brain, w/o contrast completed Information not available 11/03/2024 10:38:00 10/31/2024 XR, facial bones completed Information not available 11/03/2024 10:38:56 10/31/2024 XR, chest + abdomen + pelvis completed Information not available 11/03/2024 10:39:56 01/14/2025 MAMMO, screening, digital, bilateral completed [address] [place], [address], 01/14/2025 19:16:33 Procedure Notes None recorded. Medical Equipment None Reported. Allergies Allergen ID Allergen Name Allergen Category Reaction Reaction Severity Criticality Documentation Date Start Date Code Code System Note Provider Name and Address Organization Details Recorded Time 662 morphine medicatio n vomiting Not available Not available 03/09/2016 7052 RxNorm Breanna Spencer NP [address], [place], [address], [facility] 6 12:02:38 663 Talwin medicatio n other Not available Not available 03/09/2016 8002 RxNorm Breanna Spencer NP [address], [place], [address], [facility] 6 12:02:48 Medications Name Sig Start Date Stop Date Status Note LastModified by Organization Details LastModified Time losartan 50 mg tablet Take 1 tablet every day by oral route in the evening for 90 days. 12/15 completed -- on Telmisar massey 80 mg now Not Available Not Available Not Available cyclobenz aprine 10 mg tablet 1 tab once a day as needed; can cause drowsine ss 2023 active Not Available Not Available Not Avai lable amoxicill in 500 mg capsule TK FOUR CS PO 1 HOUR B DAPP 08/15 completed Not Available Not Available Not Available fluconazo le 100 mg tablet 08/15 completed Not Available Not Available Not Available promethaz ine-DM 6.25 mg-15 mg/5 mL oral syrup TAKE 5 ML BY MOUTH THREE TIMES DAILY FOR 7 DAYS active Not Available Not Available No t Available levothyro xine 137 mcg tablet Take 1 tablet every day by oral route in the morning. 09/14 completed -- decrease d to 125 mcg every AM Not Available Not Available Not Available doxycycli ne hyclate 100 mg capsule TAKE 1 CAPSULE BY MOUTH TWICE DAILY FOR 10 DAYS active Not Available Not Available No t Available atorvasta tin 20 mg tablet TAKE 1 TABLET EVERY DAY active Not Available Not Available No t Available azithromy perez 250 mg tablet TK 2 TS PO ON DAY 1, THEN TK 1 T PO D FOR 4 DAYS 01/03 completed Not Available Not Available Not Available ofloxacin 0.3 % eye drops 11/07 completed Not Available Not Available Not Available fluconazo le 150 mg tablet TAKE 1 TABLET BY MOUTH EVERY OTHER DAY 02/23 completed Not Available Not Available Not Available benzonata te 200 mg capsule 1 tab once up to 3 times a day as needed 10/31 completed Not Available Not Available Not Available metoprolo l succinate ER 50 mg tablet,ex tended release 24 hr Take 1 tablet every day by oral route. active Not Available Not Available No t Available hydrocodo ne 5 mg-acetam inophen 325 mg tablet TAKE 1 TABLET BY MOUTH EVERY 8 HOURS NEEDED FOR PAIN 01/03 completed Not Available Not Available Not Available prednison e 20 mg tablet 11/03 completed Not Available Not Available Not Available chlorthal idone 25 mg tablet TAKE 1 TABLET BY MOUTH EVERY DAY IN THE MORNING 2024 active Not Available Not Available Not Avai lable aspirin 81 mg tablet,de layed release Take 1 tablet every day by oral route. active Not Available Not Available No t Available tramadol 50 mg tablet 1 tab taken (togethe r w/ 1 tab of Tylenol 500 mg) once up to twice a day as needed active Not Available Not Available No t Available spironola ctone 25 mg tablet Take 1 tablet every day by oral route. 11/23 completed Not Available Not Available Not Available glimepiri de 2 mg tablet TK 1 T PO D WITH LENORE 08/15 completed Not Available Not Available Not Available ketorolac 0.5 % eye drops 11/07 completed Not Available Not Available Not Available prednisol one acetate 1 % eye drops,hayde pension 11/07 completed Not Available Not Available Not Available Flagyl 500 mg tablet Take 1 tablet every 6 hours by oral route. 04/06 completed Not Available Not Available Not Available amlodipin e 10 mg tablet TAKE 1 TABLET EVERY EVENING 01/03 completed -- changed to Metoprol ol succinat e Not Available Not Available Not Available benzonata te 100 mg capsule 11/03 completed Not Available Not Available Not Available pantopraz ole 40 mg tablet,de layed release 1 tab taken around 4 pm daily active Not Available Not Available No t Available metformin 1,000 mg tablet TAKE 1 TABLET BY MOUTH TWICE DAILY 01/03 completed -- changed to ER 500 mg rx Not Available Not Available Not Available levothyro xine 125 mcg tablet TAKE 1 TABLET BY MOUTH EVERY DAY IN THE MORNING active Not Available Not Available No t Available tobramyci n 0.3 % eye drops INSTILL 1 DROP INTO AFFECTED EYE(S) BY OPHTHALM IC ROUTE EVERY 4 HOURS 11/27 completed Not Available Not Available Not Available buspirone 10 mg tablet Take 1 tablet twice a day by oral route. 08/15 completed Not Available Not Available Not Available telmisart an 80 mg tablet Take 1 tablet every day by oral route for 90 days. active Not Available Not Available No t Available Pepcid 40 mg tablet Take 1 tablet every day by oral route. 09/04 completed -- changed to 20 mg bid Not Available Not Available Not Available methylpre dnisolone 4 mg tablets in a dose pack FOLLOW PACKAGE DIRECTIO NS active Not Available Not Available No t Available albuterol sulfate HFA 90 mcg/actua tion aerosol inhaler INHALE 1 TO 2 PUFFS BY MOUTH EVERY 4 TO 6 HOURS NEEDED FOR WHEEZING FOR 10 DAYS active Not Available Not Available No t Available cefdinir 300 mg capsule TAKE 1 CAPSULE BY MOUTH EVERY 12 HOURS 11/07 completed Not Available Not Available Not Available metformin ER 500 mg tablet,ex tended release 24 hr Take 1 tablet every 12 hours by oral route. 2023 active Not Available Not Available Not Avai lable amoxicill in 875 mg-potass ium clavulana te 125 mg tablet TAKE 1 TABLET BY MOUTH EVERY 12 HOURS 02/23 completed Not Available Not Available Not Available azithromy perez 500 mg tablet TK 1 T PO QD FOR 5 DAYS 11/23 completed Not Available Not Available Not Available duloxetin e 30 mg capsule,d elayed release 1 pill once daily x 10 days; then 2 pills once daily until finished active Not Available Not Available No t Available duloxetin e 60 mg capsule,d elayed release TAKE ONE CAPSULE BY MOUTH EVERY DAY active Not Available Not Available No t Available varenicli ne tartrate 1 mg tablet Take 1 tablet twice a day by oral route. active Not Available Not Available No t Available varenicli ne tartrate 0.5 mg (11)-1 mg (42) tablets in a dose pack DIRECTED active Not Available Not Available No t Available metformin ER 500 mg 24 hr tablet,ex tended release (gastric retention ) Take 2 tablets twice a day by oral route. 08/27 completed -- changed to Xigduo Not Available Not Available Not Available Mucinex 1,200 mg tablet, extended release Take 1 tablet every 12 hours by oral route. 11/07 completed Not Available Not Available Not Available azelastin e 137 mcg-fluti casone 50 mcg/spray nasal spray Adams 1 spray twice a day by intranas al route. 05/07 completed -- not using Not Available Not Available Not Available Farxiga 10 mg tablet Take 1 tablet every day by oral route for 2 days. 08/27 completed -- changed to Xigduo Not Available Not Available Not Available Trulicity 1.5 mg/0.5 mL subcutane ous pen injector ADMINIST ER 1.5 MG UNDER THE SKIN EVERY WEEK 12/18 completed -- changed to Mounjaro Not Available Not Available Not Available Trulicity 0.75 mg/0.5 mL subcutane ous pen injector Inject 0.75 mg every week by subcutan eous route for 30 days. 05/16 completed -- on 1.5 mg now Not Available Not Available Not Available Xigduo XR 5 mg-1,000 mg tablet,ex tended release TAKE 1 TABLET BY MOUTH EVERY DAY active Not Available Not Available No t Available Xigduo XR 10 mg-1,000 mg tablet,ex tended release 04/25 completed -- changed to Invokame t due to formular y Not Available Not Available Not Available Prestalia 14 mg-10 mg tablet Take 1 tablet every day by oral route in the morning. 11/23 completed Not Available Not Available Not Available Invokamet XR 150 mg-1,000 mg tablet, extended release Take 1 tablet twice a day by oral route. 08/15 completed Not Available Not Available Not Available Ozempic 1 mg/dose (2 mg/1.5 mL) subcutane ous pen injector 1 mg sc once week 08/18 completed Not Available Not Available Not Available Ozempic 0.25 mg or 0.5 mg (2 mg/1.5 mL) subcutane ous pen injector Start: 0.25 mg SC qwk x4wk, then incr. to 0.5 mg qwk x4wk, then may incr. to 1 mg qwk; Max: 1 mg/wk; Info: give doses >48h apart (need to rotate sites). 08/15 completed Not Available Not Available Not Available Trulicity 3 mg/0.5 mL subcutane ous pen injector Inject 3 mg every week by subcutan eous route. 12/18 completed -- changed to Mounjaro as Trulicit y 3 mg is not availabl e Not Available Not Available Not Available Mounjaro 2.5 mg/0.5 mL subcutane ous pen injector Inject 2.5 mg every week by subcutan eous route for 12 days. 05/07 completed -- cannot afford Not Available Not Available Not Available Vitals Date Recorded Body height Respiratory rate Heart rate Body temperature Body mass index (BMI) Body weight Provider Name and Address Organization Details Last Updated DateTime 3 160.02 cm 16 /min 76 /min 97.8 [degF] 40.9 kg/m2 449899. 84 g Ivelisse Davidson [facility] 3 18:13:54 Date Recorded Systolic blood pressure Diastolic blood pressure Provider Name and Address Organization Details Last Updated DateTime 11/07/2023 144 mm[Hg] 79 mm[Hg] Marcus Pandya MD [address], [place], [address] 11/07/2023 19:07:44 Date Recorded Body height Respiratory rate Body temperature Body mass index (BMI) Body weight Systolic blood pressure Diastolic blood pressure Provider Name and Address Organization Details Last Updated DateTime 4 160.02 cm 16 /min 97.6 [degF] 40.6 kg/m2 645001. 65 g 135 mm[Hg] 65 mm[Hg] Ivelisse Davidson [facility] 4 13:26:42 Date Recorded Heart rate Provider Name an d Address Organization Details Last Updated DateTime 12/18/2023 60 /min Marcus Pandya MD [address], [place], [address] 12/18/2023 14:09:08 Date Recorded Body height Heart rate Respiratory rate Body temperature Body mass index (BMI) Body weight Provider Name and Address Organization Details Last Updated DateTime 4 160.02 cm 72 /min 16 /min 97.5 [degF] 40.2 kg/m2 153470. 47 g Simi Eduardo [facility] 4 17:44:57 Date Recorded Systolic blood pressure Diastolic blood pressure Provider Name and Address Organization Details Last Updated DateTime 05/07/2024 138 mm[Hg] 88 mm[Hg] Marcus Pandya MD [address], [place], [address] 05/07/2024 18:49:25 Date Recorded Body height Heart rate Respiratory rate Body temperature Body mass index (BMI) Body weight Systolic blood pressure Diastolic blood pressure Provider Name and Address Organization Details Last Updated DateTime 4 160.02 cm 77 /min 16 /min 97.3 [degF] 39.3 kg/m2 933001. 51 g 152 mm[Hg] 89 mm[Hg] Ivelisse Davidson [facility] 18:57:31 Date Recorded Body height Heart rate Respiratory rate Body temperature Provider Name and Address Organization Details Last Updated DateTime 11/03/2024 160.02 cm 78 /min 16 /min 98.2 [degF] Ivelisse Davidson [facility] 11/03/2024 09:21:40 Date Recorded Systolic blood pressure Diastolic blood pressure Provider Name and Address Organization Details Last Updated DateTime 11/03/2024 139 mm[Hg] 78 mm[Hg] Marcus Pandya MD [address], [place], [address], [facility] 11/03/2024 10:43:24 Social History Question Answer Notes LastModified by Organizat ion Details LastModified Time Tobacco Smoking Status Current Every Day Smoker 1-2 PPD x35 years. Re-started back smoking in 2016 --> decreased to 3/4 ppd Marcus Pandya MD [address], [place], [address], [facility] 11/07/2023 19:02:21 What Is Your Level Of Alcohol Consumption? Occasional 1 Glass Wine Rarely Information not available 11/23/2020 What Is Your Level Of Caffeine Consumption? Heavy Tea Information not available 11/07/2023 How Much Tobacco Do You Chew? None Information not available 11/23/2020 What Is Your Code Status? Full Code Information not available 11/07/2023 In The 14 Days Before Symptom Onset, Have You Had Close Contact With A Laboratory-confi rmed COVID-19 While That Case Was Ill? No [email or web address] Information not available 11/07/2023 In The 14 Days Before Symptom Onset, Have You Had Close Contact With A Person Who Is Under Investigation For COVID-19 While That Person Was Ill? No Information not available 11/07/2023 Have You Been To An Area Known To Be High Risk For COVID-19? No Pt Reports She Had COVID In March And July 2020 [email or web address] Information not available 11/07/2023 Are You Currently Employed? Yes [email or web address] Information not available 11/07/2023 What Type Of Diet Are You Following? DIABETIC [email or web address] Information not available 11/07/2023 Which Illicit Or Recreational Drugs Have You Used? Denies kmank Information not available 03/09/2016 Do You Or Have You Ever Used E-cigarettes Or Vape? 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 11/03/2024 Information not available 11/03/2024 Seat Belts Used Routinely Yes [email or web address] Information not available 11/07/2023 Smoke Alarm In Home Yes [email or web address] Information not available 11/07/2023 Do You Or Have You Ever Used Smokeless Tobacco? Never Used Smokeless Tobacco [email or web address] Information not available 11/07/2023 How Much Tobacco Do You Smoke? 1 PPD Information not available 11/23/2020 Do You Use Any Illicit Or Recreational Drugs? No [email or web address] Information not available 11/07/2023 How Many Years Have You Smoked Tobacco? 36 [email or web address] Information not available 11/07/2023 Do You Or Have You Ever Used Any Other Forms Of Tobacco Or Nicotine? No [email or web address] Information not available 11/07/2023 Sex: Unknown Functional Status Question Answer Note LastModified by Organization D etails LastModified Time What is your exercise level? None [email or web address] Information not available 11/07/2023 Mental Status None recorded. Family History Relationship Description Onset Age of this Age Resolved Age Notes LastModified by Organization Details LastModified Time Mother Heart disease MD @ mid 60's CHF -- in her 80s Not available 11/23/2020 10:54:02 Brother Heart disease 35 42 (Nash) MD @ 35 y/o had CABG x 6v Not available 11/23/2020 10:53:44 Sister Arthritis [email or web address] Not available 11/03/2024 09:04:15 Sister Asthma [email or web address] Not available 09:04:15 Sister Malignant tumor of colon Dx'd late 50's early 60's [email or web address] Not available 11/03/2024 09:04:15 Father Heart disease aortic aneury sm and MD in 90's [email or web address] Not available 11/23/2020 10:02:05 Medical History No medical history recorded. Gynecological History Statement/Question Response Date of Last Pap Smear 09/12/2021 Date of Last Mammogram 03/28/2023 Date of Last Colonoscopy 01/25/2022 Obstetrics History GPAL:G 1 P 0 0 0 0 Immunizations Vaccine Type Date Status Note Provider Nam e and Address Organization Details Recorded Time Influenza, split virus, trivalent, preservative [address] [facility] 11/23/2020 09:48:11 COVID-19, mRNA, LNP-S, PF, 30 mcg/0.3 mL dose [address] [facility] 11/07/2023 16:55:57 COVID-19, mRNA, LNP-S, PF, 30 mcg/0.3 mL dose [address] [facility] 11/07/2023 16:55:57 COVID-19, mRNA, LNP-S, PF, 30 mcg/0.3 mL dose [address] [facility] 11/07/2023 16:55:57 Influenza, split virus, quadrivalent, preservative [address] [facility] 11/07/2023 16:55:57 Pneumococcal conjugate PCV [address] [facility] 11/07/2023 16:55:57 Influenza, split virus, quadrivalent, preservative [address] [facility] 11/07/2023 16:55:57 pneumococcal polysaccharide PPV23 [address] [facility] 11/07/2023 16:55:57 COVID-19, mRNA, LNP-S, PF, 30 mcg/0.3 mL dose 2 completed Courtney Jay [facility], [facility] 11/07/2023 16:55:57 zoster recombinant 2 completed Courtney Jay null, [facility] 11/07/2023 16:55:57 zoster recombinant 2 completed Courtney Jay null, [facility] 11/07/2023 16:55:57 zoster recombinant 2 completed Courtney Jay null, [facility] 11/07/2023 16:55:57 influenza, unspecified formulation 3 completed Ivelisse Davidson [facility], [facility] 11/07/2023 18:14:20 Past Encounters Encounter ID Performer Location Encounter Start Date Encounter Closed Date Diagnosis/Indication Diagnosis SNOMED-CT Code Diagnosis ICD10 Code Diagnosis Note [id number] Marcus Pandya MD [facility], [facility] [address] [place] [address] 03/09/2016 12:27:10 03/09/2016 14:23:13 Gastroenteritis 75400076 K52.9 (likely viral) -- will only treat conservati vely. Issue of work statement from 03/03/16 to 03/15/16; RTW on 03/16/16. Diabetes mellitus 991321 09 E11.9 -- Check labs on 04/10/16 Low back pain 058876897 M54.5 [id number] [email or web address] [address] [place] [address] 09/04/2016 10:05:23 09/04/2016 11:45:47 Benign essential hypertension 1608520 I10 -- missing meds b/c of pharmacy issues and uncontroll ed-- nursing BP check in 3 weeks Morbid obesity 631850949 E66.01 Screening for cancer 158 94971 Z12.9 Type 2 don betes mellitus without complication 501046353 E11.9 -- recheck labs on 10/02/16 Hypothyroidism 87339580 E03.9 Hyperlipidemia 36733873 E78.5 -- Patient only had 2 days of Lipitor because of pharmacy issues; will recheck cholestero l in 3 months. Gastroesop hageal reflux disease without esophagitis 387954721 K21.9 -- Patient counseled on the associated risk of kidney failure, osteoporos is, and dementia when taking Protonix (or Omeparazol e, or Nexium);-- The patient still wants to be on Protonix and nothing else. Low back pain 358554453 M54.5 Cough 16263416 R05 (x 2 weeks) -- dry cough Active or passive immunization 773669722 Z23 Viral screening 75020534 4 Z11.59 Depression screening 171 315134 Z13.89 -- no sx of depresssin [id number] Marcus Pandya MD [facility], [facility] [address] [place] [address] 11/23/2020 09:16:44 11/23/2020 11:04:06 Type 2 diabetes mellitus without complication 754483322 E11.9 -- recheck labs on 10/02/16 Essential hypertension 83727549 I10 Hyperlipidemia 53023075 E78.5 -- Patient only had 2 days of Lipitor because of pharmacy issues; will recheck cholestero l in 3 months. Hypothyroidism 52728932 E03.9 Gastroesop hageal reflux disease without esophagitis 093664731 K21.9 -- Patient counseled on the associated risk of kidney failure, osteoporos is, and dementia when taking Protonix (or Omeparazol e, or Nexium);-- The patient still wants to be on Protonix and nothing else. Body mass index 40+ - severely obese 271880168 Z68.41 Hepatitis C screening 41 7559813 Z11.59 Active or passive immunization 119198401 Z23 SARS-CoV-2 355959621 U07 .1 (tested positive on 07/22/20 at [facility])-- still has residual fatigue Nicotine dependence 5629 4008 F17.200 Anxiety 63318802 F41.9 Screening for malignant neoplasm of colon 551356006 Z12.11 w/ sister having colon cancer in her 60s Screening for malignant neoplasm of breast 456668546 Z12.31 Screening for malignant neoplasm of cervix 145651297 Z12.4 -- pt will make her own appt w/ Dr Gabriela Contreras Fatigue 92960820 R53.83 Advance di rective discussed with patient 571648462 Z71.89 Low back pain 051282806 M54.5 Elma-Ba rr virus disease 107150833 B27.00 Sx started in March 2020 after she lost her taste; tested negative for Covid & later tested positive for EBV [id number] Marcus Pandya MD [facility] [address] [place] [address] 12/23/2020 09:29:51 12/23/2020 11:31:31 Adult health examination 794690521 Z00.00 Type 2 don betes mellitus without complication 652441770 E11.9 Hyperlipidemia 91736031 E78.5 -- you will need to limit Carbohydra casper intake to between 40- 50 gram per meal & also between 120 - 150 grams a day. -- Examples of Carbohydra casper are: ice-cream, sweet sugar treats, rice, potatoes, sweet potatoes (yams), bananas, corn products (popcorn, corn muffin, corn bread, cornflakes , corn ), oats, flour products (pasta, bread, bagel, muffins, donuts, biscuits, cookies, crackers, pancakes, waffle, cakes, pies &/or Alcohol. Essential hypertension 83938286 I10 Hypothyroidism 04308506 E03.9 SARS-CoV-2 560991245 U07 .1 (tested positive on 07/22/20 at [facility])-- still has residual fatigue Elma-Ba rr virus disease 168934313 B27.00 Sx started in March 2020 after she lost her taste; tested negative for Covid & later tested positive for EBV Gastroesop hageal reflux disease without esophagitis 588435357 K21.9 -- Patient counseled on the associated risk of kidney failure, osteoporos is, and dementia when taking Protonix (or Omeparazol e, or Nexium);-- The patient still wants to be on Protonix and nothing else. Body mass index 40+ - severely obese 482704463 Z68.41 -- advised weight loss; pt gained 4 # since her last visit-- pt's BMI today is 41.8 (ideal is between 20-25) Nicotine dependence 5629 4008 F17.200 Low back pain 251672023 M54.5 Anxiety 36196553 F41.9 Hepatitis C screening 41 0214104 Z11.59 -- tested negative for Hep C on 11/23/20 Active or passive immunization 536231808 Z23 Screening for malignant neoplasm of colon 458565945 Z12.11 w/ sister having colon cancer in her 60s Screening for malignant neoplasm of breast 933593933 Z12.31 Screening for malignant neoplasm of cervix 446150018 Z12.4 -- pt will make her own appt w/ Dr Gabriela Contreras Advance di rective discussed with patient 949090201 Z71.89 Leukocytosis 107388212 D 72.829 -- asymptomat ic Screening for osteoporosis 830332955 Z13.820 [id number] Marcus Pandya MD [facility], [facility] [address] [place] [address] 08/15/2021 13:54:41 08/15/2021 15:53:32 Hypothyroidism 56324058 E03.9 -- check lab(s) today Type 2 don betes mellitus without complication 436223059 E11.9 -- check lab(s) today Gastroesop hageal reflux disease without esophagitis 702245257 K21.9 -- Patient counseled on the associated risk of kidney failure, osteoporos is, and dementia when taking Protonix (or Omeparazol e, or Nexium);-- The patient still wants to be on Protonix and nothing else.-- check lab(s) today Hyperlipidemia 91327028 E78.5 -- you will need to limit Carbohydra casper intake to 40 gram per meal & also a maximum of 120 grams a day. -- Examples of Carbohydra casper are: ice-cream, sweet sugar treats, rice, potatoes, sweet potatoes (yams), bananas, corn products (popcorn, corn muffin, corn bread, cornflakes , corn ), oats, flour products (pasta, bread, bagel, muffins, donuts, biscuits, cookies, crackers, pancakes, waffle, cakes, pies &/or Alcohol.-- check lab(s) today Essential hypertension 25285134 I10 -- EKG done on 11/23/20-- check lab(s) today Body mass index 40+ - severely obese 348258215 Z68.41 -- advised weight loss; no weight change since her last visit-- pt's BMI today is 41.8 (ideal is between 20-25) Hepatitis C screening 41 4318906 Z11.59 -- tested negative for Hep C on 11/23/20 Active or passive immunization 407537047 Z23 Screening for malignant neoplasm of colon 097929916 Z12.11 w/ sister having colon cancer in her 60s Screening for malignant neoplasm of breast 989982733 Z12.31 Screening for malignant neoplasm of cervix 249388784 Z12.4 -- pt will make her own appt w/ Dr Gabriela Contreras as needed (pt had STEVE & BSO on 02/1999 Nicotine dependence 5629 4008 F17.210 -- over 35 ppd Closed fra cture of shaft of fibula 59466009 S82.401D Cat bite - wound 0421069 04 T14.8XXD -- started on Augmentin 875 mg-125 mg on 06/24/21-- healed w/ residule pink (see photo) Marcus Pandya MD [facility] [address] [place] [address] 11/21/2021 15:27:57 11/21/2021 17:15:40 Type 2 diabetes mellitus without complication 689250570 E11.9 -- check lab(s) today Essential hypertension 26162322 I10 -- EKG done on 11/23/20-- check lab(s) today Hypothyroidism 62988210 E03.9 -- check lab(s) today Hyperlipidemia 41162556 E78.5 -- you will need to limit Carbohydra casper intake to 40 gram per meal & also a maximum of 120 grams a day. -- Examples of Carbohydra casper are: ice-cream, sweet sugar treats, rice, potatoes, sweet potatoes (yams), bananas, corn products (popcorn, corn muffin, corn bread, cornflakes , corn ), oats, flour products (pasta, bread, bagel, muffins, donuts, biscuits, cookies, crackers, pancakes, waffle, cakes, pies &/or Alcohol.-- check lab(s) today Gastroesop hageal reflux disease without esophagitis 271698486 K21.9 -- Patient counseled on the associated risk of kidney failure, osteoporos is, and dementia when taking Protonix (or Omeparazol e, or Nexium);-- The patient still wants to be on Protonix and nothing else.-- check lab(s) today Nicotine dependence 5629 4008 F17.210 -- over 35 ppd Closed fra cture of shaft of fibula 11638801 S82.401D Body mass index 40+ - severely obese 186217649 Z68.41 -- advised weight loss; no weight change since her last visit-- pt's BMI today is 41.8 (ideal is between 20-25) Hepatitis C screening 41 5709330 Z11.59 -- tested negative for Hep C on 11/23/20 Active or passive immunization 136673932 Z23 Screening for malignant neoplasm of colon 939670466 Z12.11 w/ sister having colon cancer in her 60s Screening for malignant neoplasm of breast 310118856 Z12.31 -- pt reported she has appt for colonoscop y w/ Dr Gomez in January 2022 Screening for malignant neoplasm of cervix 354958530 Z12.4 -- pt will make her own appt w/ Dr Gabriela Contreras as needed (pt had STEVE & BSO on 02/1999 External hordeolum 96332 08 H00.019 (right lower lateral edge ) -- much improved since on Augmentin [id number] Marcus Pandya MD [facility] [address] [place] [address] 02/23/2022 15:11:26 02/23/2022 17:32:12 External hordeolum 7894971 H00.019 (right lower lateral edge ) -- resolved Type 2 don betes mellitus without complication 092863076 E11.9 -- check lab(s) today Essential hypertension 49016301 I10 -- EKG done on 11/23/20-- check lab(s) today Hypothyroidism 61927628 E03.9 -- check lab(s) today Hyperlipidemia 59856416 E78.5 -- you will need to limit Carbohydra casper intake to 40 gram per meal & also a maximum of 120 grams a day. -- Examples of Carbohydra casper are: ice-cream, sweet sugar treats, rice, potatoes, sweet potatoes (yams), bananas, corn products (popcorn, corn muffin, corn bread, cornflakes , corn ), oats, flour products (pasta, bread, bagel, muffins, donuts, biscuits, cookies, crackers, pancakes, waffle, cakes, pies &/or Alcohol.-- check lab(s) today Gastroesop hageal reflux disease without esophagitis 675028402 K21.9 -- Patient counseled on the associated risk of kidney failure, osteoporos is, and dementia when taking Protonix (or Omeparazol e, or Nexium);-- The patient still wants to be on Protonix and nothing else.-- check lab(s) today Nicotine dependence 5629 4008 F17.210 -- over 35 ppd Body mass index 40+ - severely obese 363650979 Z68.41 -- advised weight loss; pt gained 2 # since her last visit-- pt's BMI today is 42.2 (ideal is between 20-25) Hepatitis C screening 41 3031239 Z11.59 -- tested negative for Hep C on 11/23/20 Active or passive immunization 402187490 Z23 Screening for malignant neoplasm of colon 243714111 Z12.11 w/ sister having colon cancer in her 60s-- pt reported she had colonoscop y w/ Dr Gomez on 01/12/22-- due to family hx, pt was instructed to repeat colonoscop y 5 years from 01/12/22 Screening for malignant neoplasm of breast 211667504 Z12.31 Screening for malignant neoplasm of cervix 935648088 Z12.4 -- pt will make her own appt w/ Dr Gabriela Contreras as needed (pt had STEVE & BSO on 02/1999 Multiple n odules of lung 806761237 R91.8 -- Pt saw Pulmonolog ist Dr Rox Silvestre today 02/23/22 whom wanted pt to repeat chest CT 3 months from last [id number] Marcus Pandya MD [facility] [address] [place] [address] 05/16/2022 15:43:21 06/21/2022 17:29:03 Type 2 diabetes mellitus without complication 851719949 E11.9 -- recheck lab(s) 05/26/22 Essential hypertension 56422237 I10 -- EKG done on 11/23/20-- recheck lab(s) 05/26/22 Hypothyroidism 19995606 E03.9 -- recheck lab(s) 05/26/22 Hyperlipidemia 45341739 E78.5 -- you will need to limit Carbohydra casper intake to 40 gram per meal & also a maximum of 120 grams a day. -- Examples of Carbohydra casper are: ice-cream, sweet sugar treats, rice, potatoes, sweet potatoes (yams), bananas, corn products (popcorn, corn muffin, corn bread, cornflakes , corn ), oats, flour products (pasta, bread, bagel, muffins, donuts, biscuits, cookies, crackers, pancakes, waffle, cakes, pies &/or Alcohol.-- recheck lab(s) 05/26/22 Gastroesop hageal reflux disease without esophagitis 397163192 K21.9 -- Patient counseled on the associated risk of kidney failure, osteoporos is, and dementia when taking Protonix (or Omeparazol e, or Nexium);-- The patient still wants to be on Protonix and nothing else.-- recheck lab(s) 05/26/22 Multiple n odules of lung 157644900 R91.8 -- Pt saw Pulmonolog ist Dr Rox Silvestre today 02/23/22 whom wanted pt to repeat chest CT 3 months from last-- pt advised Nicotine dependence 5629 4008 F17.210 -- over 35 ppd Body mass index 40+ - severely obese 357875811 Z68.41 -- advised weight loss;-- pt's BMI was 42.2 (ideal is between 20-25) Hepatitis C screening 41 8079421 Z11.59 -- tested negative for Hep C on 11/23/20 Active or passive immunization 430976167 Z23 Screening for malignant neoplasm of colon 600766270 Z12.11 w/ sister having colon cancer in her 60s-- pt reported she had colonoscop y w/ Dr Gomez on 01/12/22-- due to family hx, pt was instructed to repeat colonoscop y 5 years from 01/12/22 Screening for malignant neoplasm of breast 239803992 Z12.31 -- Radiologis t recommends repeating screening mammogram 1 year from 02/02/22. Screening for malignant neoplasm of cervix 601040188 Z12.4 -- pt will make her own appt w/ Dr Gabriela Contreras as needed (pt had STEVE & BSO on 02/1999 Closed fra cture of ankle 32010593 S82.90XD -- currently following w/ ortho Dr Dennis Barnes Injury of tendon of the rotator cuff of shoulder 995310190 S46.002D -- currently following w/ ortho Dr Dennis Barnes Adult heal th examination 514318134 Z00.00 Screening for osteoporosis 206997888 Z13.820 [id number] Marcus Pandya MD [facility], [facility] [address] [place] [address] 09/13/2022 15:31:33 09/13/2022 17:28:34 Type 2 diabetes mellitus without complication 228714493 E11.9 -- recheck lab(s) within 3 days from 09/13/22 Essential hypertension 84782764 I10 -- EKG done on 11/23/20-- recheck lab(s) within 3 days from 09/13/22 Hypothyroidism 85778208 E03.9 -- recheck lab(s) within 3 days from 09/13/22 Hyperlipidemia 90906801 E78.5 -- you will need to limit Carbohydra casper intake to 40 gram per meal & also a maximum of 120 grams a day. -- Examples of Carbohydra casper are: ice-cream, sweet sugar treats, rice, potatoes, sweet potatoes (yams), bananas, corn products (popcorn, corn muffin, corn bread, cornflakes , corn ), oats, flour products (pasta, bread, bagel, muffins, donuts, biscuits, cookies, crackers, pancakes, waffle, cakes, pies &/or Alcohol.-- recheck lab(s) within 3 days from 09/13/22 Gastroesop hageal reflux disease without esophagitis 628065144 K21.9 -- Patient counseled on the associated risk of kidney failure, osteoporos is, and dementia when taking Protonix (or Omeparazol e, or Nexium);-- The patient still wants to be on Protonix and nothing else.-- recheck lab(s) within 3 days from 09/13/22 Multiple n odules of lung 714626413 R91.8 -- Pt saw Pulmonolog ist Dr Rox Silvestre today 02/23/22 whom wanted pt to repeat chest CT 3 months from last-- repeat chest CT as directed by Pulmonolog ist Dr Rox Silvestre Nicotine dependence 5629 4008 F17.210 -- over 35 ppd Injury of tendon of the rotator cuff of shoulder 856530321 S46.002D -- currently following w/ ortho Dr Dennis Barnes Closed fra cture of ankle 69089644 S82.90XD -- currently following w/ ortho Dr Dennis Barnes Screening for osteoporosis 686169835 Z13.820 Hepatitis C screening 41 4090051 Z11.59 -- tested negative for Hep C on 11/23/20 Active or passive immunization 168080735 Z23 Screening for malignant neoplasm of colon 036145339 Z12.11 w/ sister having colon cancer in her 60s-- pt reported she had colonoscop y w/ Dr Gomez on 01/12/22-- due to family hx, pt was instructed to repeat colonoscop y 5 years from 01/12/22 Screening for malignant neoplasm of breast 248296809 Z12.31 -- Radiologis t recommends repeating screening mammogram 1 year from 02/02/22. Screening for malignant neoplasm of cervix 669010629 Z12.4 -- pt will make her own appt w/ Dr Gabriela Contreras as needed (pt had STEVE & BSO on 02/1999 Body mass index 30+ - obesity 055143384 Z68.39 -- advised weight loss; pt lost 24 # since her last visit-- pt's BMI today is 38 (ideal is between 87=718 Low back pain 728368703 M54.50 Lesion of skin of face 5732377507 06 L98.9 (between eyebrows) [id number] Marcus Pandya MD [facility] [address] [place] [address] 01/03/2023 15:25:30 01/03/2023 17:20:16 Essential hypertension 42224466 I10 -- EKG done 01/03/23-- uncontroll ed; will change Amlodipine to Metoprolol 50 mg half tab daily-- recheck lab(s) around 03/13/23 Type 2 don betes mellitus without complication 025764100 E11.9 -- recheck lab(s) around 03/13/23 Hyperlipidemia 54655950 E78.5 -- you will need to limit Carbohydra casper intake to 40 gram per meal & also a maximum of 120 grams a day. -- Examples of Carbohydra casper are: ice-cream, sweet sugar treats, rice, potatoes, sweet potatoes (yams), bananas, corn products (popcorn, corn muffin, corn bread, cornflakes , corn ), oats, flour products (pasta, bread, bagel, muffins, donuts, biscuits, cookies, crackers, pancakes, waffle, cakes, pies &/or Alcohol. -- recheck lab(s) around 03/13/23 Leukocytosis 598769640 D 72.829 -- asymptomat ic-- recheck lab(s) around 03/13/23 Osteopenia 202986930 M85 .861 (Rt femoral neck) on DEXA done on 12/27/22 -- start Citracal 600 mg 1 pill twice a day-- if she is not already on daily vit D, take otc vit D 2,000 units daily (in addition to the vit D in Citracal). -- weight bearing exercise (like walking, dancing, low-impact aerobics, elliptical training machines, & stair climbing). -- repeat Bone density 2 years from [id number] Marcus Pandya MD [facility] [address] [place] [address] 03/13/2023 11:51:20 03/13/2023 14:30:06 Acute sinusitis 11087300 J01.90 Type 2 don betes mellitus without complication 526495872 E11.9 -- recheck lab(s) around 03/13/23 Hyperlipidemia 18914744 E78.5 -- you will need to limit Carbohydra casper intake to 40 gram per meal & also a maximum of 120 grams a day. -- Examples of Carbohydra casper are: ice-cream, sweet sugar treats, rice, potatoes, sweet potatoes (yams), bananas, corn products (popcorn, corn muffin, corn bread, cornflakes , corn ), oats, flour products (pasta, bread, bagel, muffins, donuts, biscuits, cookies, crackers, pancakes, waffle, cakes, pies &/or Alcohol.-- LDL of 55 (09/13/22) Essential hypertension 14140516 I10 -- EKG done 01/03/23-- uncontroll ed; will change Amlodipine to Metoprolol 50 mg half tab daily-- recheck lab(s) around 03/13/23 Osteopenia 924995640 M85 .861 (Rt femoral neck) on DEXA done on 12/27/22 -- start Citracal 600 mg 1 pill twice a day-- if she is not already on daily vit D, take otc vit D 2,000 units daily (in addition to the vit D in Citracal). -- weight bearing exercise (like walking, dancing, low-impact aerobics, elliptical training machines, & stair climbing). -- repeat Bone density 2 years from Allergic rhinitis 290719 04 J30.9 Hypothyroidism 09218384 E03.9 -- recheck lab(s) within 3 days from 09/13/22 [id number] Marcus Pandya MD [facility] [address] [place] [address] 05/23/2023 11:57:22 05/23/2023 14:16:15 Right lower quadrant pain 964549583 R10.31 Low back pain 867250092 M54.50 -- occasional without new sx or any other associated sx Pain of ri ght knee region 3266291031 01861 M25.561 Essential hypertension 71158828 I10 -- EKG done 01/03/23-- uncontroll ed; as pt reported she had not taken her BP meds yet [id number] Marcus Pandya MD [facility] [address] [place] [address] 06/13/2023 12:01:36 06/13/2023 14:07:44 Adult health examination 276319694 Z00.00 Acute sinusitis 51724329 J01.90 -- resolved Type 2 don betes mellitus without complication 628372716 E11.9 -- recheck lab(s) around 09/12/23 Hyperlipidemia 81869041 E78.5 -- you will need to limit Carbohydra casper intake to 40 gram per meal & also a maximum of 120 grams a day. -- Examples of Carbohydra casper are: ice-cream, sweet sugar treats, rice, potatoes, sweet potatoes (yams), bananas, corn products (popcorn, corn muffin, corn bread, cornflakes , corn ), oats, flour products (pasta, bread, bagel, muffins, donuts, biscuits, cookies, crackers, pancakes, waffle, cakes, pies &/or Alcohol.-- LDL of 55 (09/13/22) -- recheck lab(s) around 09/12/23 Essential hypertension 56797011 I10 -- EKG done 01/03/23-- uncontroll ed; will change Amlodipine to Metoprolol 50 mg half tab daily-- recheck lab(s) around 09/12/23 Hypothyroidism 27853224 E03.9 -- recheck lab(s) around 09/12/23 Osteopenia 351282268 M85 .861 (Rt femoral neck) on DEXA done on 12/27/22 -- start Citracal 600 mg 1 pill twice a day-- if she is not already on daily vit D, take otc vit D 2,000 units daily (in addition to the vit D in Citracal). -- weight bearing exercise (like walking, dancing, low-impact aerobics, elliptical training machines, & stair climbing). -- repeat Bone density 2 years from Allergic rhinitis 742967 04 J30.9 Right lowe r quadrant pain 289523725 R10.31 -- improved about 70% (no longer needed Tylenol)-- referred pt to GI Dr Gomez Pain of [facility] knee region 0064087564 71006 M25.561 -- Rt knee xrays on 05/30/23 were unrevealin g Low back pain 860160851 M54.50 -- occasional without new sx or any other associated sx Hepatitis C screening 41 7481342 Z11.59 -- tested negative for Hep C on 11/23/20 Active or passive immunization 675166280 Z23 Body mass index 30+ - obesity 270095984 Z68.39 -- advised weight loss; no weight change since her last visit-- pt's BMI today is 39 (ideal is between 61=882 Screening for malignant neoplasm of colon 415968432 Z12.11 w/ sister having colon cancer in her 60s-- pt reported she had colonoscop y w/ Dr Gomez on 01/12/22-- due to family hx, pt was instructed to repeat colonoscop y 5 years from 01/12/22 Screening for malignant neoplasm of breast 505736279 Z12.31 -- screening mammogram done 03/28/23 Gynecologi c examination 36588771 Z01.419 CT of abdo men abnormal 2999361611 4513647 R93.5 -- Calcificat ion seen on Rt breast on abd CT done at [facility] on 05/30/23 [id number] Marcus Pandya MD [facility] [address] [place] [address] 12/18/2023 12:12:34 12/18/2023 14:33:57 Essential hypertension 21938819 I10 -- EKG done 01/03/23-- uncontroll ed; will change Losartan to Telmisarta n-- recheck lab(s) within 3 days from 12/18/23 Rupture of breast implant 485551700 T85.49XA -- Calcificat ion seen on Rt breast on abd CT done at [facility] on 05/30/23-- MRI of breast (on 11/02/23) showed bilateral rupture Type 2 don betes mellitus without complication 050014071 E11.9 Informed pt that Mounjaro is related to a class of meds called GLP -1There are risks associated w/ the GLP class, and the risks are: 1) pancreatit is (you must stop Mounjaro, if you experience any abdominal pain/disco mfort); and2) risk of developmen t of thyroid cancer3) risk of stomach or intestinal paralysis4 ) risk of Depression Therefore do not use Mounjaro if you have previous or current history of pancreatit is; & do not use Mounjaro if you have any family history of thyroid cancer. -- recheck lab(s) within 3 days from 12/18/23 Hyperlipidemia 79464524 E78.5 -- you will need to limit Carbohydra casper intake to 40 gram per meal & also a maximum of 120 grams a day. -- Examples of Carbohydra casper are: ice-cream, sweet sugar treats, rice, potatoes, sweet potatoes (yams), bananas, corn products (popcorn, corn muffin, corn bread, cornflakes , corn ), oats, flour products (pasta, bread, bagel, muffins, donuts, biscuits, cookies, crackers, pancakes, waffle, cakes, pies &/or Alcohol.-- LDL of 55 (09/13/22) -- recheck lab(s) around 11/22/23 Hypothyroidism 35595641 E03.9 -- recheck lab(s) around 11/22/23 Obstructiv e sleep apnea of adult 1565038126 103 G47.33 -- following with sleep specialist Dr Praveen Hartmann Osteopenia 750149925 M85 .861 (Rt femoral neck) on DEXA done on 12/27/22 -- start Citracal 600 mg 1 pill twice a day-- if she is not already on daily vit D, take otc vit D 2,000 units daily (in addition to the vit D in Citracal). -- weight bearing exercise (like walking, dancing, low-impact aerobics, elliptical training machines, & stair climbing). -- repeat Bone density 2 years from 12/27/22 Allergic rhinitis 949740 04 J30.9 Right lowe r quadrant pain 122951485 R10.31 -- improved about 70% (no longer needed Tylenol)-- referred pt to GI Dr Gomez but pt did not want to make appt as she no longer has any sx. Low back pain 394449471 M54.50 -- occasional without new sx or any other associated sx Pain of ri ght knee region 4352633507 32070 M25.561 -- Rt knee xrays on 05/30/23 were unrevealin g Nicotine dependence 5629 4008 F17.200 -- over 35 ppd-- pt reported she is getting year chest CT ordered by Pulmonolog ist Dr Silvestre- - counseled pt to quit smoking due to increased risks for stroke, heart attack, Cancers, COPD (Emphysema /chronic Bronchitis ), aneurysm, and premature . Gastroesop hageal reflux disease without esophagitis 010569921 K21.9 -- Patient counseled on the associated risk of kidney failure, osteoporos is, and dementia when taking Protonix (or Omeparazol e, or Nexium);-- The patient still wants to be on Protonix and nothing else.-- recheck lab(s) within 3 days from 09/13/22 Body mass index 40+ - severely obese 719309189 Z68.41 -- advised weight loss; pt lost 2 # since her last visit-- pt's BMI was 40.6 (ideal is between 20-25) Hepatitis C screening 41 2530202 Z11.59 -- tested negative for Hep C on 11/23/20 Active or passive immunization 822154516 Z23 Screening for malignant neoplasm of colon 303478536 Z12.11 w/ sister having colon cancer in her 60s-- pt reported she had colonoscop y w/ Dr Gomez on 01/12/22-- due to family hx, pt was instructed to repeat colonoscop y 5 years from 01/12/22 Screening for malignant neoplasm of breast 024162341 Z12.31 -- screening mammogram done 03/28/23 Gynecologi c examination 61308398 Z01.419 [id number] Marcus Pandya MD [facility], [facility] [address] [place] [address] 05/07/2024 16:55:38 05/07/2024 19:00:47 Essential hypertension 90158628 I10 -- EKG done 01/03/23-- uncontroll ed; restart Metoprolol succ 50 mg at half tab daily-- recheck lab(s) around 07/24/24 Rupture of breast implant 194539476 T85.49XA -- Calcificat ion seen on Rt breast on abd CT done at [facility] on 05/30/23-- MRI of breast (on 11/02/23) showed bilateral rupture Type 2 don betes mellitus without complication 353914441 E11.9 Informed pt that Mounjaro is related to a class of meds called GLP -1There are risks associated w/ the GLP class, and the risks are: 1) pancreatit is (you must stop Mounjaro, if you experience any abdominal pain/disco mfort); and2) risk of developmen t of thyroid cancer3) risk of stomach or intestinal paralysis4 ) risk of Depression Therefore do not use Mounjaro if you have previous or current history of pancreatit is; & do not use Mounjaro if you have any family history of thyroid cancer. -- recheck lab(s) around 07/24/24 Hyperlipidemia 35984405 E78.5 -- you will need to limit Carbohydra casper intake to 40 gram per meal & also a maximum of 120 grams a day. -- Examples of Carbohydra casper are: ice-cream, sweet sugar treats, rice, potatoes, sweet potatoes (yams), bananas, corn products (popcorn, corn muffin, corn bread, cornflakes , corn ), oats, flour products (pasta, bread, bagel, muffins, donuts, biscuits, cookies, crackers, pancakes, waffle, cakes, pies &/or Alcohol.-- LDL of 55 (09/13/22) -- recheck lab(s) around 07/24/24 Hypothyroidism 76422170 E03.9 -- recheck lab(s) around 07/24/24 Obstructiv e sleep apnea of adult 6655913126 103 G47.33 -- following with sleep specialist Dr Praveen Hartmann-- averaging over 7.5 hr of CPAP use nightly Osteopenia 287467235 M85 .861 (Rt femoral neck) on DEXA done on 12/27/22 -- start Citracal 600 mg 1 pill twice a day-- if she is not already on daily vit D, take otc vit D 2,000 units daily (in addition to the vit D in Citracal). -- weight bearing exercise (like walking, dancing, low-impact aerobics, elliptical training machines, & stair climbing). -- repeat Bone density 2 years from 12/27/22 Right lowe r quadrant pain 922010360 R10.31 -- improved about 70% (no longer needed Tylenol)-- referred pt to GI Dr Gomez but pt did not want to make appt as she no longer has any sx. Low back pain 171550231 M54.50 -- CT of abd & pelvis showed severe degenerati ve changes Pain of ri ght knee region 3289772874 22744 M25.561 -- Rt knee xrays on 05/30/23 were unrevealin g Nicotine dependence 5629 4008 F17.200 -- over 35 ppd-- pt reported she is getting year chest CT ordered by Pulmonolog ist Dr Silvestre- - counseled pt to quit smoking due to increased risks for stroke, heart attack, Cancers, COPD (Emphysema /chronic Bronchitis ), aneurysm, and premature . Gastroesop hageal reflux disease without esophagitis 933159692 K21.9 -- Patient counseled on the associated risk of kidney failure, osteoporos is, and dementia when taking Protonix (or Omeparazol e, or Nexium);-- The patient still wants to be on Protonix and nothing else.-- recheck lab(s) around 07/24/24 Body mass index 40+ - severely obese 672870570 Z68.41 -- advised weight loss; pt lost 2 # since her last visit-- pt's BMI was 40.2 (ideal is between 20-25) Hepatitis C screening 41 9075855 Z11.59 -- tested negative for Hep C on 11/23/20 Active or passive immunization 381960771 Z23 Screening for malignant neoplasm of colon 410872859 Z12.11 w/ sister having colon cancer in her 60s-- pt reported she had colonoscop y w/ Dr Gomez on 01/12/22-- due to family hx, pt was instructed to repeat colonoscop y 5 years from 01/12/22 Screening for malignant neoplasm of breast 501402581 Z12.31 -- screening mammogram done 03/28/23 Gynecologi c examination 94788956 Z01.419 Cough 12437511 R05.9 (unchanged per pt; increased since smoking) Multiple n odules of lung 102156900 R91.8 -- Pt following Pulmonolog ist Dr Rox Silvestre- - Pulmonolog ist Dr Rox Silvestre is ordering her chest CT yearly (last CT scan done on 01/24/24) [id number] Marcus Pandya MD [facility] [address] [place] [address] 09/10/2024 16:52:25 09/10/2024 20:02:37 Adult health examination 892333641 Z00.00 Cough 63597868 R05.9 (unchanged per pt; increased since smoking) Essential hypertension 38475128 I10 -- uncontroll ed; restart Metoprolol succ 50 mg at half tab daily-- EKG done 01/03/23-- recheck lab(s) around 12/12/23 Rupture of breast implant 359952716 T85.49XA -- Calcificat ion seen on Rt breast on abd CT done at [facility] on 05/30/23-- MRI of breast (on 11/02/23) showed bilateral rupture Type 2 don betes mellitus without complication 430075060 E11.9 Informed pt that Mounjaro is related to a class of meds called GLP -1There are risks associated w/ the GLP class, and the risks are: 1) pancreatit is (you must stop Mounjaro, if you experience any abdominal pain/disco mfort); and2) risk of developmen t of thyroid cancer3) risk of stomach or intestinal paralysis4 ) risk of Depression Therefore do not use Mounjaro if you have previous or current history of pancreatit is; & do not use Mounjaro if you have any family history of thyroid cancer. -- recheck lab(s) around 07/24/24 Hyperlipidemia 67690379 E78.5 -- you will need to limit Carbohydra casper intake to 40 gram per meal & also a maximum of 120 grams a day. -- Examples of Carbohydra casper are: ice-cream, sweet sugar treats, rice, potatoes, sweet potatoes (yams), bananas, corn products (popcorn, corn muffin, corn bread, cornflakes , corn ), oats, flour products (pasta, bread, bagel, muffins, donuts, biscuits, cookies, crackers, pancakes, waffle, cakes, pies &/or Alcohol.-- LDL of 55 (09/13/22) -- recheck lab(s) around 07/24/24 Hypothyroidism 48633425 E03.9 -- recheck lab(s) around 07/24/24 Obstructiv e sleep apnea of adult 4042074194 103 G47.33 -- following with sleep specialist Dr Praveen Hartmann-- averaging over 7.5 hr of CPAP use nightly Osteopenia 324113185 M85 .861 (Rt femoral neck) on DEXA done on 12/27/22 -- start Citracal 600 mg 1 pill twice a day-- if she is not already on daily vit D, take otc vit D 2,000 units daily (in addition to the vit D in Citracal). -- weight bearing exercise (like walking, dancing, low-impact aerobics, elliptical training machines, & stair climbing). -- repeat Bone density 2 years from 12/27/22 Low back pain 596571157 M54.50 -- CT of abd & pelvis showed severe degenerati ve changes Pain of ri ght knee region 8947313570 19280 M25.561 -- Rt knee xrays on 05/30/23 were unrevealin g Multiple n odules of lung 110416631 R91.8 -- Pt following Pulmonolog ist Dr Rox Silvestre- - Pulmonolog ist Dr Rox Silvestre is ordering her chest CT yearly (last CT scan done on 01/24/24) Nicotine dependence 5629 4008 F17.200 -- over 35 ppd-- pt reported she is getting year chest CT ordered by Pulmonolog ist Dr Silvestre- - counseled pt to quit smoking due to increased risks for stroke, heart attack, Cancers, COPD (Emphysema /chronic Bronchitis ), aneurysm, and premature . Gastroesop hageal reflux disease without esophagitis 106210080 K21.9 -- Patient counseled on the associated risk of kidney failure, osteoporos is, and dementia when taking Protonix (or Omeparazol e, or Nexium);-- The patient still wants to be on Protonix and nothing else.-- recheck lab(s) around 07/24/24 Body mass index 40+ - severely obese 333607741 Z68.41 -- advised weight loss; pt lost 2 # since her last visit-- pt's BMI was 40.2 (ideal is between 20-25) Hepatitis C screening 41 2433821 Z11.59 -- tested negative for Hep C on 11/23/20 Active or passive immunization 022742368 Z23 Screening for malignant neoplasm of colon 428569065 Z12.11 w/ sister having colon cancer in her 60s-- pt reported she had colonoscop y w/ Dr Gomez on 01/12/22-- due to family hx, pt was instructed to repeat colonoscop y 5 years from 01/12/22 Screening for malignant neoplasm of breast 867246481 Z12.31 -- screening mammogram done 03/28/23 Gynecologi c examination 76186859 Z01.419 Advance di rective discussed with patient [id number] Z71.89 At low risk for fall [id number] Z91.81 -- no unsteady balance or gait problems-- have not fallen since Apr 2022 when she trpped over a hose-- no fear of falling or falling tendency [id number] Marcus Pandya MD [facility] [address] [place] [address] 11/03/2024 09:03:38 11/03/2024 10:47:44 Viral syndrome [id number] B34.9 (since 10/21/24)- - still cough some-- Clinically stable-- okay to RTW on 11/06/24 Hypothyroidism [id number] E03.9 Low TSH means too much thyroid hormone -- inform pt that I will decrease her Levothyrox ine from 137 mcg --> 125 mcg 1 tab daily.-- recheck lab(s) around 07/24/24 Hyperlipidemia [id number] E78.5 (^ LDL & triglyceri camila of 310 on 09/10/24)- - on Atorvastat in 20 mg qd currently- - you will need to limit Carbohydra casper intake to 40 gram per meal & also a maximum of 120 grams a day. -- Examples of Carbohydra casper are: ice-cream, sweet sugar treats, rice, potatoes, sweet potatoes (yams), bananas, corn products (popcorn, corn muffin, corn bread, cornflakes , corn ), oats, flour products (pasta, bread, bagel, muffins, donuts, biscuits, cookies, crackers, pancakes, waffle, cakes, pies &/or Alcohol. -- recheck lab(s) around 07/24/24 Low back pain [id number] M54.50 -- CT of abd & pelvis showed severe degenerati ve changes Type 2 don betes mellitus without complication [id number] E11.9 Informed pt that Mounjaro is related to a class of meds called GLP -1There are risks associated w/ the GLP class, and the risks are: 1) pancreatit is (you must stop Mounjaro, if you experience any abdominal pain/disco mfort); and2) risk of developmen t of thyroid cancer3) risk of stomach or intestinal paralysis4 ) risk of Depression Therefore do not use Mounjaro if you have previous or current history of pancreatit is; & do not use Mounjaro if you have any family history of thyroid cancer. -- recheck lab(s) around 07/24/24 Essential hypertension [id number] I10 -- uncontroll ed; restart Metoprolol succ 50 mg at half tab daily-- EKG done 01/03/23-- recheck lab(s) around 12/12/23 Gastroesop hageal reflux disease without esophagitis [id number] K21.9 -- Patient counseled on the associated risk of kidney failure, osteoporos is, and dementia when taking Protonix (or Omeparazol e, or Nexium);-- The patient still wants to be on Protonix and nothing else.-- recheck lab(s) around 07/24/24 Osteopenia [id number] M85 .861 (Rt femoral neck) on DEXA done on 12/27/22 -- start Citracal 600 mg 1 pill twice a day-- if she is not already on daily vit D, take otc vit D 2,000 units daily (in addition to the vit D in Citracal). -- weight bearing exercise (like walking, dancing, low-impact aerobics, elliptical training machines, & stair climbing). -- repeat Bone density 2 years from 12/27/22 Health Concerns Section Related Observation LastModified by Organization Ashaai ls LastModified Time None Recorded Concern Status LastModified by Organization Details LastModified Time None Recorded Advance Directives Directive None Recorded Payers Encounter Date Sequence Insurance Name Policy Number Policy Herman Covered Member ID Herman Member ID Guarantor Name 12/18/2023 1 [employer] (MEDICARE REPLACEMENT/ ADVANTAGE - PPO) Virginia Preciadoski [id number] Virginia Preciadoski 05/07/2024 1 [employer] (MEDICARE REPLACEMENT/ ADVANTAGE - PPO) Virginia Baronwalski [id number] Virginia Baronwalski 09/10/2024 1 [employer] (MEDICARE REPLACEMENT/ ADVANTAGE - PPO) Virginia Baronwalski [id number] Virginia Downs Yeimy 11/03/2024 1 [employer] (MEDICARE REPLACEMENT/ ADVANTAGE - PPO) Virginia Preciadoski [id number] Virginia Preciadoski Notes Date Note Type Note Provider Name and Address Organization Details Recorded Time 12/18/2023 text/html Patient in today to for f/u of uncontrolled BP. Pt is also here for f/u DM, HLD, Hypothyroidism, and LBP (no change). Pt feels well and has no c/o. Pt has no new sx and no increasing sx. Patient denies any jaw or neck discomfort, left arm pain/left arm discomfort, chest discomfort/pain, diaphoresis, breathing symptoms/chest tightness, indigestion sx, n/v, any angina equivalent symptoms, etc. Marcus Pandya MD [address] [facility] [address], [place], [address], [facility] 12/18/2023 14:33:29 05/07/2024 text/html Pt comes in w/ daughter (Luisana) for f/u of HTN, DM, HLD, Hypothyroidism, JAYNE, Osteopenia, Lung nodules, and Nicotine dependence. Pt feels well and has no c/o. Pt has no new sx and no increasing sx. Daughter feels cough has increased slightly but pt disagrees. Patient denies any jaw or neck discomfort, left arm pain/left arm discomfort, chest discomfort/pain, diaphoresis, breathing symptoms/chest tightness, indigestion sx, n/v, any angina equivalent symptoms, etc. Marcus Pandya MD [address], [place], [address], [facility] 05/07/2024 19:02:42 09/10/2024 text/html Medicare Annual Wellness VisitReported bypatient.Diet and Nutrition:healthy diet; discussed vitamin and supplement use; discussed portion control; discussed maintaining calcium balance Fracture Risk:no recent explained fracture; no sudden unexplained fractures; no previous musculoskeletal injuries;history of fractures((left ankle Fx - tripped & fall) 08/22/07; tripped on flip flop again on 05/01/22 & broke left ankle again) Physical Activity:discussed weightbearing activities; discussed exercise habits Depression Risk:never feels sad, empty, or tearful; no loss of interest in activities; no significant changes in weight; no sleep disturbances or insomnia; no agitation; no loss of energy; no feelings of worthlessness or guilt; no thoughts of suicide; no history of depression; no history of mood disorders Orientation:no disorientation to time; no disorientation to date; no disorientation to place Concentration and Memory:no decreased concentrating ability; no memory lapses or loss; does not forget words Speech/Motor difficulties:no speech difficulties; no difficulty expressing formulated concepts; no difficulty with fine manipulative tasks; no difficulty writing/copying; no slowed reaction time; does not knock things over when trying to pick them up Hearing:no loss of hearing Vision:no vision problems Activities of Daily Living:able to bathe with limited or no assistance; able to dress with limited or no assistance; able to feed self with limited or no assistance; able to get out of chair or bed with limited or no assistance; able to groom with limited or no assistance; able to toilet with limited or no assistance;unable to contol urination and bowels(since hysterectomy & failed bladder lift surgery) Instrumental Activities of Daily Living:able to do house work with limited or no assistance; able to grocery shop with limited or no assistance; able to manage medications with limited or no assistance; able to manage money with limited or no assistance; able to prepare meals with limited or no assistance; able to use the phone with limited or no assistance Falls Risk Assessment:no frequent falls while walking; no fall in the past year; no fall since last visit; no dizziness/vertigo Home Safety:no unsafe flora hazzards; no unsafe stairs; no unsafe gas appliances; working smoke/CO detectors; use of seatbelts; no vision or hearing loss while driving; no fire arms; has hand bars in the bathroom/shower; good lighting in the home Pt comes in for abnormal abd CT Scan report, DM, HLD, HTN, Hypothyroidism, , Osteopenia, GERD, and nicotine dependence. Pt is also due for her annual Wellness Visit. Pt feels well and has no c/o. Pt has no new sx and no increasing sx. Patient denies any jaw or neck discomfort, left arm pain/left arm discomfort, chest discomfort/pain, diaphoresis, breathing symptoms/chest tightness, indigestion sx, n/v, any angina equivalent symptoms, etc. Marcus Pandya MD [address] [facility] [address], [place], [address], [facility] 09/10/2024 20:03:09 11/03/2024 text/html Pt slipped & fel l in the shower on 10/30/24. Pt was told to go to the Emergency Room. CT of head and neck showed no acute pathology.Pt also had severe Viral sx on 10/21/24. Pt was tested negative for Flu & covid on 10/31/24 (had Flu shot on 09/11/24)Pt had to return to work on Pt denies any headaches, visual sx, speech problems, memory or confusion problems, focal muscle weakness, numbness /tingling, unsteady balance or gait, coordination problems, urinary symptoms, or bowel symptoms, worsening /increasing symptoms or any new sx. Marcus Pandya MD [address] [facility] [address], [place], [address], [facility] 11/03/2024 10:47:16 OBGyn Episode No OBEpisode recorded.
--- OUTSIDE RECORDS SUMMARY | 2025-02-05 13:44 | XMS_ITS | Encounter Summary ---
Author Organization [facility] Address [address] [place], [place] [address] [address] Care Team Providers Care Fire Hazard Inspector Name Role Phone Allie Martin MD Primary Care Provider [phone] Juan Flores MD Unavailable Unavailable Latisha Slater APRN-SLITTER OPERATOR Unavailable [phone] Encounter Details Date Type Department Care Team (Late st Contact Info) Description 04/22/2020 [facility] Outpatient Visit [facility] - Family Medicine [id number] [place] [address] [address] [place] [address] [place] [address] [facility] [address] [place] [address] Social History Tobacco Use Types Packs/Day Years Used Date Smoking Tobacco: Former Cigarettes Q uit: 02/10/2003 Smokeless Tobacco: Never Alcohol Use Standard Drinks/Week Comments Yes 0 (1 standard drink = 0.6 oz pur e alcohol) Sex and Gender Information Value Date Recorded Sex Assigned at Not on file Gender Identity Not on file Sexual Orientation Not on file COVID-19 Exposure Response Date Recorded In the last month, have you been in contact with someone who was confirmed or suspected to have Coronavirus / COVID-19? No / Unsure 04/06/2020 1:13 PM CDT documented as of this encounter Plan of Treatment Not on file documented as of this encounter Goals Goal Patient Goal Type Associated Problems Recent Progress Patient-Stated? Author Blood Pressure < 140/90 Blood Pressure 124/80(05/07 8:51 AM CDT) Tc Weaver Note: Caring for Your High Blood Pressure Medications Keep a written list of what medicines you are taking and when you take them. Bring the list of your medicines or the pill bottles when you see your provider. Learn why you take each medicine. Ask your provider or pharmacist for information about your medicines. Do not take yycb-zdl-zoqrihf medicine or herbal supplements without talking to your provider. Some of these medicines may raise your blood pressure. You may need to have your medicine or the dose changed many times before it is right for you. It may take weeks for your body to adjust to your blood pressure medicine. Be patient and do not stop taking your medicine, even if you have side effects or are feeling fine. Let your provider know about any side affects you have concerns about. Where can I go for more information? [place] [employer] National Center: http://www.americanheart.org 1. In the top header, click C onditions . 2. In the top header, click h igh blood pressure. 3. For a printable blood pressure tracker, scroll toward the bottom of the page to Related Tools, and click H BP Trackers. 8-939-CFZ-[place]-1 or ( ) National Heart, Lung and Blood [place]: http://www.nhlbi.nih.gov/health/infoctr/index.htm Exercise 5X per week (30 min per time) Exercise No Tc Garcia Note: The [place] [employer] recommends all adults get a minimum of 150 minutes of moderate physical activity a week. This can be completed as 30 minutes of brisk walking on most days of the week. Even 10 minutes of exercise a day can provide benefit and will add up over the week. If able, try to take the stairs instead of the elevator or park farther away in the parking lot. Start slow and try to increase your amount of activity over several weeks. Exercise will help to improve your cholesterol readings and blood pressure and to be overall healthier. Have labs drawn Lifestyle Tc Weaver Note: Caring for Your Diabetes How to take care of your feet Look at your feet every day. Look for dry skins, cracks, cuts or redness. If you can t bend over to see your feet use a mirror or family member to help you Wash your feet in warm (not hot) soapy water. Rinse your feet well and dry them carefully especially between your toes. Apply lotion after washing your feet to prevent dry skin. Do not apply lotion between your toes. Keep toenails clean and trimmed. Do not use scissors or clippers. See a smoke eater regularly. Avoid injuries to your feet by not going barefoot. Always wear socks/stockings and well fitted shoes. Discuss foot care with your primary care provider or smoke eater regularly. Remove your shoes and socks at every visit to remind your primary care provider to check your feet regularly. Call the office if you notice any changes on your feet. The following resources can help you and the people close to you learn more about diabetes and how to manage your diabetes: [place] [employer] Association: www.diabetes.org 1-199-JQIPSTQO ( ) [place] [employer]-Support group line: www.professional.diabetes.org [place] Heart Association: www.heart.org or 0-500-YIQ-[facility]-1 ( ) bookletmobile MyPlate: www.choosemyplate.gov documented as of this encounter Visit Diagnoses Not on filedocumented in this encounter Care Teams Fire Hazard Inspector Relationship Specialty [place] [id number] [facility] [address] [place] [address] [id number] PCP - General Internal Medicine 09/05/19 Latisha Slater APRN-SLITTER OPERATOR [id number] [facility] [address] [place], [place] [id number] PCP - Attributed-[facility] 05/12/20 04/30/23 [place] [id number] [facility] [address] [place] [address] Infectious Disease 05/19/20 documented as of this encounter
--- OUTSIDE RECORDS SUMMARY | 2025-02-05 13:44 | XMS_ITS | Clinical Summary ---
Author Organization [facility] Address [address] [place] [address] Care Team Providers Care Advertising Agent Name Role Phone Marcus Pandya MD Primary Care Provider [phone] Allergies Active Allergy Reactions Criticality Noted Date [...] 12/19/2016 Assessment & Plan (01/07/2025 1:32 PM STENO TYPIST): Patient continue to wear her CPAP at 12 cm water pressure while sleeping. Her DME is [employer]. Assessment & Plan (01/02/2024 2:30 PM STENO TYPIST): Due to continued symptoms, the patient will continue CPAP at 12 cm water pressure. Denied need for supplies. DME [employer] Assessment & Plan (05/02/2023 2:20 PM CDT): The patient will continue CPAP therapy at 12 cm water pressure. Denied need for supplies. DME [employer]. Assessment & Plan (01/17/2023 2:49 PM STENO TYPIST): Due to the patient needing a new CPAP I have ordered a nocturnal polysomnogram split night protocol if necessary, no MSLT. The patient will need an order for new CPAP after the nocturnal polysomnogram is completed. Pure hypercholesterolemia 12/19/2016 Type 2 diabetes mellitus wit hout complication, without long-term current use of insulin 12/19/2016 Morbid obesity 03/09/2016 Encounters Date Type Department Care Team Description 01/14/2025 1:32 PM [facility] TYPIST - 01/14/2025 11:59 PM [facility]YPIST Hospital Encounter [facility] [address] [place] [address] Encounter for screening mammogram for malignant neoplasm of breast; H/O bilateral breast implants Discharge Disposition: Discharge to home or self care 01/14/2025 12:50 PM [facility] TYPIST - 01/14/2025 11:59 PM [facility] Hospital Encounter [facility] [address] [place] [address] Cigarette nicotine dependence without complication Discharge Disposition: Discharge to home or self care 01/07/2025 1:30 PM [facility] TYPIST Office Visit [facility] [address] [place] [id number] Maria Luisa Macdonald NP JAYNE (obstructive sleep apnea) (Primary Dx) from Last 3 Months Surgical History Surgery Date Site/Laterality Comments HYSTERECTOMY age 41 AUGMENTATION MAMMAPLASTY 11/12/1985 - 11/11/1986 Bilateral Subglandular. Right silicone (encapsulated) Left was replaced and is saline--known rupture OOPHORECTOMY Bilateral age 41 Medical History Medical History Date Comments Diabetes mellitus (HCC) Hypertension Thyroid disease Gastric reflux Family History Medical History Relation Name Comments Heart disease Father Heart failure Mother Breast cancer Neg Hx Relation Name Status Comments Father Mother Social History Tobacco Use Types Packs/Day Years [...] on file Legal Sex Female 8:18 PM STENO TYPIST Gender Identity Not on file Sexual Orientation Not on file Obstetrics History Para Term AB IAB SAB Ectopic Multiple Livin g Live Births 1 1 1 Date Outcome GA Total Labor Labor/2nd/3rd Weight Sex Type Anes PTL Gail A1 A5 Name Clin Term Last Filed Vital Signs Vital Sign Reading Time Taken Comments Blood Pressure 175/83 01/07/2025 1:22 PM [facility] TYPIST Pulse 72 01/07/2025 1:22 PM [facility] TYPIST Temperature 37 C (98.6 F) 10/31/2024 9:59 AM [facility] TYPIST Respiratory Rate 18 01/07/2025 1:22 PM [facility] TYPIST Oxygen Saturation 96% 01/07/2025 1:22 PM [facility] TYPIST Inhaled Oxygen Concentration - - Weight 104.3 kg (230 lb) 01/14/2025 1:19 PM [facility] TYPIST Height 160 cm (5' 3 ) 01/14/2025 1:19 PM [facility] TYPIST Body Mass Index 40.74 01/14/2025 1:19 PM STENO TYPIST Plan of Treatment Health Maintenance Due Date Last Done Comments Albumin Creatinine Ratio, Urine 1954 Colon Cancer Screening-Colonoscopy 1954 Depression Screening 1954 Fall Risk Assessment 1954 Hepatitis C Screening 1954 eGFR 1954 Dilated Eye Exam 1954 Foot Exam 1954 Hepatitis B Screening 1972 Lipid Panel 01/08/2016 01/08/2015 Well Visit 65+ 2019 Hemoglobin A1C 07/08/2020 01/08/2020, 11/12, 01/08/2015 Covid-19 Vaccine (2023-2 5 season) 2024 04/25/2022, 08/26/2021, 01/28/2021, Additional history exists Influenza Vaccine (#1) 2024 , 08/26/2021, 08/15/2021, Additional history exists Osteoporosis Screening-Bone Density Scan 12/25/2024 12/25/2022, 09/26/2022, 09/13/2022, Additional history exists Breast Cancer Screening-Mammogram 01/14/2026 01/14/2025, 03/28/2023, 02/02/2022, Additional history exists Lung Cancer Screening 01/15/2026 01/14/2025 , 01/10/2024, 12/13/2022, Additional history exists Pneumococcal vaccine 65+ (3 of 3 - PCV20 or PCV21) 11/21/2026 11/21/2021, 08/15/2021, 09/05/2019, Additional history exists DTaP/Tdap/Td Vaccine (6 - Td or Tdap) 11/21/2031 11/21/2021, 08/15/2021, 12/23/2020, Additional history exists Zoster Vaccine Completed 06/23/2022, 03/2022, 11/21/2021, Additional history exists Procedures Procedure Name Priority Date/Time Associated Diagnosis Comments SCREENING MAMMOGRAM BILATERAL W AVINASH W IMPLANTS Schedule Routine, Read Routine (OP Routine) 01/14/2025 1:58 PM [facility] TYPIST Encounter for screening mammogram for malignant neoplasm of breast H/O bilateral breast implants CT LUNG CANCER SCREENING Schedule Routine, Read Routine (OP Routine) 01/14/2025 1:18 PM STENO TYPIST Cigarette nicotine dependence without complication HEMOGLOBIN A1C Routine 01/08/2015 8:03 AM [facility] TYPIST LIPID PANEL Routine 01/08/2015 8:03 AM [facility] TYPIST from Last 3 Months or Most Recently Relevant to Health Maintenance Results * Screening Mammogram Bilateral W Avinash W Implants (01/14/2025 1:58 PM STENO TYPIST) Anatomical Region Laterality Modality Breast Bilateral Mammography Impressions 01/14/2025 2:49 PM STENO TYPIST BI-RADS ATLAS category (overall): 2 - Benign Ruptured bilateral breast implants. There is no mammographic evidence of malignancy. A 1 year screening mammogram is recommended. The patient has been or will be contacted. We recommend annual screening mammography for women at average risk of breast cancer beginning at age 40, based on guidelines of the [place] [employer] (ACR Practice Parameter for the Performance of Screening and Diagnostic Mammography) and [place] [employer]. For women with and elevated risk of breast cancer, please refer to the ACR Practice Parameter for specific screening recommendations. The patient will be entered into a reminder system with a target due date of 1 year for her next screening exam. Narrative 01/14/2025 2:49 PM STENO TYPIST Screening Mammogram Bilateral W Avinash W Implants: [...] CT Lung Cancer Screening (01/14/2025 1:18 PM STENO TYPIST) Anatomical Region Laterality Modality Chest N/A Computed Tomogra phy 01/16/2025 7:49 AM STENO TYPIST Narrative 01/16/2025 8:01 AM STENO TYPIST EXAM DESCRIPTION: CT LUNG CANCER SCREENING REASON [...] interstitial thickening and ground-glass opacity evidence of fpxj-qo-theqqjlb fibrosis without overt honeycombing. No mediastinal or [...] Mild emphysema and evidence of chronic bronchitis. Ukqe-pw-ysvilwjp pulmonary fibrosis. Lung-RADS category 2: Benign appearance or behavior. Recommendation: Low dose Screening CT of chest in 12 months. THIS IS AN ELECTRONICALLY VERIFIED FINAL REPORT 01/16/2025 8:01 AM - Electronically signed by Magnus Conklin M.D. T: Report ID: [id number] Reading Location: [id number] Procedure Note Magnus Conklin Jr., MD - [...] reticular interstitial thickening and ground-glass opacity evidence qlzari-uc-cbprcoje fibrosis without overt honeycombing. No mediastinal or [...] Mild emphysema and evidence of chronic bronchitis. Ipnk-dv-gwqmuzet pulmonary fibrosis. Lung-RADS category 2: Benign appearance or behavior. Recommendation: Low dose Screening CT of chest in 12 months. THIS IS AN ELECTRONICALLY VERIFIED FINAL REPORT 01/16/2025 8:01 AM - Electronically signed by Magnus Conklin M.D. T: Report ID: [id number] Reading Location: [place] [address] [place] Rox Silvestre MD IMG CT PROCEDURES Final Resul t * (ABNORMAL) Hemoglobin A1c (01/08/2015 8:03 AM STENO TYPIST) Hemoglobin A1c % 8.6(H) 4.8 - 5.9 % Comment: As of 2010 Method: GIO Fabián 6000 using turbidometric inhibition immunoassay procedure. Results obtained are comparable to results obtained using previous methodology (HPLC). [place] [employer] Association recommends that the goal of therapy should be an A1C hemoglobin of <7%. Reevaluate the treatment regimen in patients with an A1C >8%. 01/08/2015 8:03 AM STENO TYPIST 01/08/2015 8:21 AM [facility] [employer] [facility] [employer] [facility] HISTORICAL RESULTS - 01/08/2015 8:35 AM [facility] FASTING 12 HOURS Marcus Pandya MD LAB BLOOD ORDERABLES Final Resul t [facility] HISTORICAL RESULTS * Lipid panel (01/08/2015 8:03 AM [facility]) Pathologist [facility] Triglycerides 150 0 - 199 mg/dL Comment:12 hr pc highly lizeth mmended for Triglyceride Cholesterol 187 0 - 199 mg/dL Comment: Borderline: 200-239 High Risk: >239 HDL Cholesterol 49 40 - 60 mg/dL Comment: Major Risk < 40 mg/dL Moderate Risk 40-60 mg/dL Negative Risk > 60 mg/dL LDL Cholesterol, Calc 108 0 - 130 mg/dL Comment:High Risk > 159 mg/d L Cholesterol/HDL Ratio 3.8 Comment: Cholesterol / HDL Ratio 3.5:1 or less is desirable. Cholesterol / HDL Ratio greater than 5:1 is considered higher risk for developing heart disease. 01/08/2015 8:03 AM [facility] TYPIST 01/08/2015 8:21 AM [facility] HISTORICAL RESULTS - 01/08/2015 9:06 AM [facility]YPIST FASTING 12 HOURS us Marcus Pandya MD LAB BLOOD ORDERABLES Final Resul t [facility] HISTORICAL RESULTS from Last 3 Months or Most Recently Relevant to Health Maintenance Insurance [employer] MEDICARE PPO [employer] MEDICARE PPO [employer] MEDICARE PPO Care Teams Advertising Agent Relationship Specialty Start Date End Date Marcus Pandya MD [address] [facility] [address] [place] [address] PCP - General Internal Medicine 02/06/22
--- OUTSIDE RECORDS SUMMARY | 2025-02-05 13:44 | XMS_ITS | Clinical Summary ---
Author Organization [facility] Address [address] [place] [address] Care Team Providers Care Oil Burner Mechanic Name Role Phone Allie Martin MD Primary Care Provider [phone] Juan Flores MD Unavailable Unavailable Source Comments [facility],non-owned Affiliates and Associated Physician Practices is amultiple site organization consisting of ambulatory clinics and hospital sitesin [place], [place], [place]. This disclosure is being madepursuant to the Care Everywhere program and may not contain all information available regarding this patient. Last updated 18.[facility] Allergies Active Allergy Reactions Criticality Noted Date Comments Yovani Inhibitors Cough Low 11/21/2017 Latex 02/13/2017 Morphine Nausea and/or Vomiting Medium 12/19/2016 Medications * Be aware that medications may not be up to date on this document. Alwaysverify current medications with the patient. Medication Sig Dispensed Refills Start Date End Date Status HYDROcodone-acet aminophen (NORCO) 5-325 MG tablet Take 1 tablet by mouth as needed 0 09/04/2016 Active clotrimazole-bet amethasone (LOTRISONE) 1-0.05 % cream Apply to affected area every other day as needed 2 11/29/2016 Active aspirin (ASPIRIN) 81 MG tablet Take 162 mg by mouth once daily Active Lactobacillus Rhamnosus, GG, (CULTURELLE PO) Take 1 Tab by mouth once daily Active B Complex-C (SUPER B COMPLEX PO) Take 1 Tab by mouth once daily Active multivitamin daily (THERAGRAN) tablet Take 1 Tab by mouth daily with food Active [place]-3 Fatty Acids (FISH OIL) 1000 MG capsule Take 1,000 mg by mouth once daily Active erythromycin (ERYDERM) 2 % solutionIndicati ons:Acne Vulgaris Apply to affected area 2 times daily Reasons: Acne 1 bottles 08/22/2017 Active Additional Information Patient taking differently:TopicalPRN, Indications: Acne Vulgaris, Reported on 05/07/2020 Multiple Minerals-Vitamin s (CALCIUM-MAGNESI UM-ZINC-D3 PO) Take 3 tablets by mouth once daily Active OZEMPIC, 0.25 OR 0.5 MG/DOSE, 2 MG/1.5ML pen INJ 0.25 MG SQ Q WEEK ON THE SAME DAY OF EACH WEEK IN A LARGE MUSCLE ROTATING INJECTION SITES. 3 Pen 1 09/05/2019 Active cyclobenzaprine (FLEXERIL) 10 MG tabletIndication s:Muscle Spasm Take 1 tablet by mouth 3 times daily as needed for Muscle Spasms Reasons: Muscle Spasm 90 tablet 1 09/05/2019 Active glimepiride (AMARYL) 2 MG tablet TAKE 1 TABLET BY MOUTH DAILY WITH BREAKFAST 90 tablet 1 04/08/2020 Active losartan (COZAAR) 50 MG tabletIndication s:Type 2 diabetes mellitus without complication, without long-term current use of insulin (HCC) TAKE 1 TABLET BY MOUTH ONCE DAILY FOR HIGH BLOOD PRESSURE DISORDER 90 tablet 1 04/08/2020 Active DULoxetine (CYMBALTA) 60 MG capsule TAKE 1 CAPSULE BY MOUTH EVERY DAY 90 capsule 1 04/08/2020 Active atorvastatin (LIPITOR) 20 MG tablet TAKE 1 TABLET BY MOUTH EVERY DAY 90 tablet 1 04/08/2020 Active XIGDUO XR 10-1000 MG tabletIndication s:Type 2 diabetes mellitus without complication, without long-term current use of insulin (HCC) TAKE 1 TABLET BY MOUTH DAILY WITH FOOD. DO NOT CRUSH OR CHEW.REASONS: DIABETES 90 tablet 1 04/08/2020 Active pantoprazole EC (PROTONIX) 40 MG tablet TAKE 1 TABLET BY MOUTH ONCE DAILY FOR GASTROESOPHAGEAL REFLUX DISEASE 90 tablet 1 04/08/2020 Active amLODIPine (NORVASC) 10 MG tabletIndication s:Benign essential HTN TAKE 1 TABLET BY MOUTH ONCE DAILY 90 tablet 1 04/08/2020 Active levothyroxine (SYNTHROID) 137 MCG tablet Take 1 tablet by mouth daily before breakfast 90 tablet 1 05/11/2020 Active traMADol (ULTRAM) 50 MG tablet Take 1 tablet by mouth every 6 hours as needed for Pain 60 tablet 2 07/22/2020 Active Active Problems Problem Noted Date Diagnosed Date Hypothyroidism, adult 12/19/2016 Chronic bilateral low back pain 12/19/2016 Benign essential HTN 12/19/2016 Pure hypercholesterolemia 12/19/2016 Type 2 diabetes mellitus wit hout complication, without long-term current use of insulin 12/19/2016 Gastroesophageal reflux disease without esophagi tis 12/19/2016 JAYNE (obstructive sleep apnea) 12/19/2016 Immunizations Name Administration Dates Next Due INFLUENZA VACCINE 08/14/2019,2017,08/24/20 16 PNEUMOCOCCAL PPSV23 08/13/2015 Pneumococcal Pcv13 Conj 09/05/2019 TDAP (7yrs+) 09/05/2016 Family History Medical History Relation Name Comments CAD (Coronary Artery Disease) Brother 1 Heart Disease Father Hypertension Father Heart Disease Mother Hypertension Mother Relation Name Status Comments Brother 1 Brother 2 Alive Father Maternal Grandfather Maternal Grandmother Mother Paternal Grandfather Paternal Grandmother Sister 1 Alive Sister 2 Alive Social History Tobacco Use Types Packs/Day Years [...] Sign Reading Time Taken Comments Blood Pressure 124/80 05/07/2020 8:51 AM CDT Pulse 92 05/07/2020 8:51 AM CDT Temperature 36.6 C (97.8 F) 05/07/2020 8:51 AM CDT Respiratory Rate 18 01/09/2020 1:16 PM SENIOR UI DEVELOPER Oxygen Saturation 96% 05/07/2020 8:51 AM CDT Inhaled Oxygen Concentration - - Weight 108.4 kg (239 lb) 05/07/2020 8:51 AM CDT Height 161.3 cm (5' 3.5 ) 05/07/2020 8:51 AM CDT Body Mass Index 41.67 05/07/2020 8:51 AM CDT Plan of Treatment Health Maintenance Due Date Last Done Comments COLOGUARD (AGES 45-75) - COLON CA SCREENING 1955 CT COLONOGRAPHY - COLON CA SCREENING 1955 FIT - COLON CA SCREENING 1955 FLEX SIG - COLON CA SCREENING 1955 ZOSTER VACCINE (1 of 2) 2004 Respiratory Syncytial Virus (RSV) Vaccine Pt: or over 60 yrs (1 - Risk 60-74 years 1-dose series) 2014 COLON MONITORING 11/12/2018 11/12/2013 Colorectal Cancer Screening 11/12/2018 DIABETES-HGB A1C 07/08/2020 01/08/2020, 08/2018, 08/22/2017, Additional history exists DIABETES-FOOT EXAM WITH MONOFILAMENT 09/05/2020 09/05/2019, 09/05/2019 MAMMOGRAM 10/28/2020 10/28/2018, 09/25/2017 DIABETES-SERUM CREATININE 01/08/20212019, 11/21/2017, 02/13/2017, Additional history exists DIABETES RETINOPATHY SCREENING 01/09/2022 01/09/2020 COLONOSCOPY - COLON CA SCREENING 11/12/2023 11/12/2013 (Done Outside Per Report) COVID-19 VACCINE (1 - season) 2024 INFLUENZA VACCINE (#1) 2024 9, 2017, 08/24/2016 PNEUMOCOCCAL VACCINE 50+ (3 of 3 - PCV20 or PCV21) 09/05/2024 09/05/2019, 08/13/2015 DEPRESSION SCREENING 11/12/2024 DIABETES - URINE PROTEIN SCREENING 11/12/2024 01/03/2017 DTAP/TDAP/TD VACCINES (2 - Td or Tdap) 09/05/2026 09/05/2016 HEPATITIS C SCREENING Completed 01/03/2017 BONE DENSITY TESTING Completed 10/28/2018 HEPATITIS B VACCINE Aged Out No longe r eligible based on patient's age to complete this topic HIB VACCINE Aged Out No longer eligi ble based on patient's age to complete this topic HPV VACCINE Aged Out No longer eligi ble based on patient's age to complete this topic MENINGOCOCCAL (Group B) VACCINE SHARED DECISION-MAKING Aged Out No longer eligible based on patient's age to complete this topic MENINGOCOCCAL GROUPS A/C/Y/W VACCINE Aged Out No longer eligible based on patient's age to complete this topic Goals Goal Patient Goal Type Associated Problems [...] information about your medicines. Do not take whfj-jxh-zejqemx medicine or herbal supplements without talking to [...] Where can I go for more information? [place] [employer] National Center: http://www.americanheart.org 1. In the top header, click C onditions . 2. In the top header, click h igh blood pressure. 3. For a printable blood pressure tracker, scroll toward the bottom of the page to Related Tools, and click H BP Trackers. 1-054-LKP-USA-1 or ( ) National Heart, Lung and Blood [place]: http://www.nhlbi.nih.gov/health/infoctr/index.htm Exercise 5X per week (30 min per time) Exercise No Tc Garcia Note: The [place] [employer] recommends all adults [...] not use scissors or clippers. See a neck band setter regularly. Avoid injuries to your feet by not going barefoot. Always wear socks/stockings and well fitted shoes. Discuss foot care with your primary care provider or neck band setter regularly. Remove your shoes and socks at every visit to remind your primary care provider to check your feet regularly. Call the office if you notice any changes on your feet. The following resources can help you and the people close to you learn more about diabetes and how to manage your diabetes: [place] [employer] Association: www.diabetes.org 1-659-VOXDZRIS ( ) [place] Diabetes Association-Support group line: www.professional.diabetes.org [place] Heart Association: www.heart.org or 7-341-[facility]-1 ( ) [place] MyPlate: www.choosemyplate.gov Procedures Procedure Name Priority Date/Time Associated Diagnosis Comments COMPREHENSIVE METABOLIC PANEL Routine 01/08/2020 8:05 AM SENIOR UI DEVELOPER Type 2 diabetes mellitus without complication, without long-term current use of insulin Benign essential HTN HEMOGLOBIN A1C Routine 01/08/2020 8:05 AM SENIOR UI DEVELOPER Type 2 diabetes mellitus without complication, without long-term current use of insulin DEXA BONE DENSITY AXIAL SKELETON Routine 10/28/2018 9:10 AM SENIOR UI DEVELOPER Postmenopause MAMMO BILAT SCREENING Routine 10/28/2018 8:57 AM SENIOR UI DEVELOPER Encounter for screening mammogram for breast cancer MICROALB/CREAT RATIO URINE RANDOM PANEL Routine 01/03/2017 9:02 AM SENIOR UI DEVELOPER Type 2 diabetes mellitus without complication, without long-term current use of insulin HEPATITIS C ANTIBODY Routine 01/03/2017 9:02 AM SENIOR UI DEVELOPER Need for hepatitis C screening test from Last 3 Months or Most Recently Relevant to Health Maintenance Results * (ABNORMAL) HEMOGLOBIN A1C (01/08/2020 8:05 AM SENIOR UI DEVELOPER) Hemoglobin A1c 7.0(H) 4.2 - 5.6 % [facility] ACCOUNT BILL Comment: AVERAGE GLUCOSE MG/DL BLOOD 154 mg/dL The following cutoff levels are recommended by [place] Diab etes Association. A1c > 6.5% : considered as diabetes if two separate tests > 6.5% or in an appropriate clinical setting. A1c 5.7% - 6.4% : considered as prediabetes (suggest increa sed risk for diabetes and cardiovascular disease) Control target level: Should be individualized. < 7 for g eneral (non-) , < 8% less stringent goal, < 6.5 more stringent g Hemoglobin A1c measurements are used as an aid in the diagno sis of diabetic mellitus, as an aid to identify patients who may be at the disease. This method may yield falsely low results when fe hallie hemoglobin (HbF) exceeds 5% in the specimen. FASTING Blood BLOOD SPECIMEN / Unknown 01/08/2020 8:05 AM SENIOR UI DEVELOPER 01/08/2020 Narrative Resulting Agency Comment Lab Testing performed at: [address] [place] [id number] Allie Martin MD LAB - CHEMISTRY SVEN MELENDEZ [facility] ACCOUNT BILL [address] [place] [address] * (ABNORMAL) COMPREHENSIVE METABOLIC PANEL (01/08/2020 8:05 AM SENIOR UI DEVELOPER) Glucose 137(H) 70 - 105 mg/dL [facility] ACCOUNT BILL BUN 12 9.8 - 20.1 mg/dL [facility] ACCOUNT BILL Creatinine 0.81 0.57 - 1.11 mg/dL [facility] ACCOUNT BILL eGFR by MDRD >60 >60 mL/min/1.7 3m2 [facility] ACCOUNT BILL eGFR by MDRD >60 >60 mL/min/1.7 3m2 [facility] ACCOUNT BILL Sodium 138 136 - 145 mmol/L [facility] ACCOUNT BILL Potassium 4.0 3.5 - 5.1 mmol/L [facility] ACCOUNT BILL Chloride 102 98 - 107 mmol/L [facility] ACCOUNT BILL CO2 24 23 - 31 mmol/L [facility] ACCOUNT BILL Calcium 10.1 8.4 - 10.4 mg/dL [facility] ACCOUNT BILL Protein Total 7.2 6.4 - 8.3 gm/dL [facility] ACCOUNT BILL Albumin 4.5 3.2 - 4.6 gm/dL [facility] ACCOUNT BILL Bilirubin Total 0.5 0.2 - 1.0 mg/dL [facility] ACCOUNT BILL Alkaline Phosphatase 91 40 - 150 U/L [facility] ACCOUNT BILL AST 14 5 - 34 U/L [facility] ACCOUNT BILL ALT 14 0 - 61 U/L [facility] ACCOUNT BILL Comment:FASTING Blood BLOOD SPECIMEN / Unknown 01/08/2020 8:05 AM SENIOR UI DEVELOPER 01/08/2020 Narrative Resulting Agency Comment Lab Testing performed at: [facility] [place] [address] [place] [id number] Allie Martin MD LAB - CHEMISTRY SVEN [facility] Organization Address City/State/ZIP Co de Phone Number [facility] ACCOUNT BILL [address] [place] [address] * DEXA BONE DENSITY AXIAL SKELETON (10/28/2018 9:10 AM SENIOR UI DEVELOPER) Anatomical Region Laterality Modality Mammography 10/28/2018 9:24 AM SENIOR UI DEVELOPER Narrative 10/28/2018 9:25 AM SENIOR UI DEVELOPER BONE MINERAL DENSITY STUDY INDICATION: Osteoporosis screening. Postmenopausal status FINDINGS: The average bone mineral density from L1 to L4 is1.420 g/cm2. The T-score is 2.0 and the Z-score is 2.4. The average bone mineral density of the total mean hips is 0.971 g/cm2. The T-score is -0.3 and the Z-score is 0.0. ASSESSMENT: Findings consistent with normal total mean bone mineral density. There is no significant increased fracture risk. WORLD HEALTH ORGANIZATION DEFINITIONS OSTEOPENIA = -1 to -2.5 SD BELOW T SCORE. OSTEOPOROSIS = Less than -2.5 SD BELOW T SCORE Reading Radiologist: Michelle Buck MD on 10/28/2018 at 9:25 AM Procedure Note Michelle Buck MD - 10/28/2018 BONE MINERAL DENSITY STUDY INDICATION: Osteoporosis screening. Postmenopausal status FINDINGS: The average bone mineral density from L1 to L4 is1.420 g/cm2. The T-score is 2.0 and the Z-score is 2.4. The average bone mineral density of the total mean hips is 0.971 g/cm2. The T-score is -0.3 and the Z-score is 0.0. ASSESSMENT: Findings consistent with normal total mean bone mineral density. There is no significant increased fracture risk. WORLD HEALTH ORGANIZATION DEFINITIONS OSTEOPENIA = -1 to -2.5 SD BELOW T SCORE. OSTEOPOROSIS = Less than -2.5 SD BELOW T SCORE Reading Radiologist: Michelle Buck MD on 10/28/2018 at 9:25 AM Gabriela Contreras MD DEXA ORDERABLES * MAMMO SCREENING DIGITAL IMAGE BILAT [id number] (10/28/2018 8:57 AM SENIOR UI DEVELOPER) Anatomical Region Laterality Modality Breast Bilateral Mammography 10/28/2018 1:30 PM SENIOR UI DEVELOPER Impressions 10/28/2018 1:35 PM SENIOR UI DEVELOPER No mammographic evidence of malignancy. ASSESSMENT: BI-RADS Category 2: Benign mammogram. RECOMMENDATION: Return for mammograms in one year or sooner if clinically indicated. Breast implants decrease the sensitivity of mammography. This report was electronically signed by NEAL MELENDREZ M.D. on 10/28/2018 1:35 PM . Narrative 10/28/2018 1:35 PM SENIOR UI DEVELOPER Bilateral screening mammogram Date: 10/28/2018 Comparison: 09/25/2017 and 01/07/2015 History: Screening mammogram. Bilateral breast implants. Technique: The breasts were imaged in multiple views using 3D tomosynthesis with reconstructed/synthetic images and CAD analysis, including implant displaced views. Findings: No suspicious mass, grouped microcalcification or architectural distortion is seen. No significant change is noted since the prior examination. The left saline breast implant is collapsed, unchanged from the prior's. A right subglandular silicone breast implant demonstrates extracapsular silicone consistent with rupture. Breast parenchymal density: The breasts are almost entirely fatty. This examination was subjected to CAD analysis. Gabriela Contreras MD MAMMO ORDERABLES * MICROALB/CREAT RATIO URINE RANDOM PANEL (01/03/2017 9:02 AM SENIOR UI DEVELOPER) Creatinine Urine 110 mg/dL [facility] ACCOUNT BILL Microalbumin Urine 1.8 mg/dL [facility] ACCOUNT BILL Microalbumin/Crea tinine Ratio 16 <30 mg/g [facility] ACCOUNT BILL Urine URINE SPECIMEN OBTAINED BY CLEAN CATCH PROCEDURE / Unknown 01/03/2017 9:02 AM SENIOR UI DEVELOPER 01/03/2017 Narrative Resulting Agency Comment [place] [address] [facility] [phone] Ora Senior MD LAB - URINE CHEMISTR Y ORDERABLES Performing Organization Address City/[facility]/ZIP Co de Phone Number [facility] ACCOUNT BILL [address] [place] [address] * HEPATITIS C ANTIBODY (01/03/2017 9:02 AM SENIOR UI DEVELOPER) Hepatitis C Antibody Non Reactive Non Reactive [facility] ACCOUNT BILL Comment: Non Reactive - Antibodies to Hepatitis C virus (HCV) were no t detected, result does not exclude early acute HCV infection. Blood BLOOD SPECIMEN / Unknown 01/03/2017 9:02 AM SENIOR UI DEVELOPER 01/03/2017 Narrative Resulting Agency Comment [facility] [address] [facility] [id number] Ora Senior MD LAB - CHEMISTRY ORDE RABLES [facility] ACCOUNT BILL [address] [place] [address] from Last 3 Months or Most Recently Relevant to Health Maintenance Care Teams Oil Burner Mechanic Relationship Specialty [place] [address] [facility] [address] [place] [address] PCP - General Internal Medicine 09/05/19 [place] [address] [facility] [address] [place] [address] Infectious Disease 05/19/20
--- OUTSIDE RECORDS SUMMARY | 2025-02-05 13:44 | XMS_ITS | Clinical Summary ---
Author Organization [facility] Address [address] [place] [address] Care Team Providers Care Home Health Care Respiratory Therapist Name Role Phone Unavailable Primary Care Provider Unavailabl e Social History Tobacco Use Types Packs/Day Years Used Date Smoking Tobacco: Never Assessed Comments Unknown Sex and Gender Information Value Date Recorded Sex Assigned at Not on file Legal Sex Female 7:06 PM CDT Gender Identity Not on file Sexual Orientation Not on file Plan of Treatment Health Maintenance Due Date Last Done Comments Colorectal Cancer Screening Colonoscopy (10 Years) 1954 Hepatitis C 1972 DTaP, Tdap and Td Vaccines ( 1 - Tdap) 1973 Zoster Vaccines (1 of 2) 2004 Annual Medicare Wellness Visit 2019 Pneumococcal Vaccine: 65+ Ye ars (1 of 1 - PCV) 2019 COVID-19 Vaccine ( - 2023-2 5 season) 2024 Influenza Adult (#1) 2024 Mammogram Screening 03/28/2025 03/28/2023 RSV Immunization or 60+ Years (1 - 1-dose 75+ series) 2029 Dexa Scan (General) Completed 10/28/2018 Meningococcal B Vaccine Aged Out No l onger eligible based on patient's age to complete this topic Meningococcal Vaccine Aged Out No trevor opal eligible based on patient's age to complete this topic RSV Immunizations Under 20 Months Aged Out No longer eligible based on patient's age to complete this topic Insurance [employer]
[2025-02-05 13:47] LABS: Add Urine Microscopic? NO; Appearance Urine Clear (Clear); Bilirubin Urine Negative (Negative); Blood Urine Negative (Negative); Color Urine Yellow (Yellow); Glucose Urine UA Negative (Negative); Ketones Urine Negative (Negative); Leukocyte Esterase Ur Negative LEU/UL (Negative); Nitrate Urine Negative (Negative); Protein Urine Negative (Negative); Specific Grav Ur 1.013 (1.001-1.035); Urobilinogen Urine 0.2 mg/dL (<2.0); pH Urine 7.5 (5.0-9.0)
[2025-02-05] MEDS: SODIUM CHLORIDE 0.9% IV 1,000 ML 999 ML IV CONT (14:03)
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
[2025-02-05 14:14] LABS: Influenza A QL RT-PCR Negative (Negative); Influenza B QL RT-PCR Negative (Negative); RSV RNA, RT-PCR Negative (Negative); SARS-CoV-2 RNA PCR Negative (Negative)
== END 2025-02-05 15:42 | disposition home or self-care (01) ==
PROVIDERS: Emergency Medicine; Emergency Provider Student in an Organized Health Care Education/Training Program; PCP Internal Medicine
DX: R53.1 Weakness (principal); E86.0 Dehydration; Z20.822 Contact with and (suspected) exposure to COVID-19; I10 Essential (primary) hypertension; E03.9 Hypothyroidism, unspecified; E11.9 Type 2 diabetes mellitus without complications; K21.9 Gastro-esophageal reflux disease without esophagitis; G47.33 Obstructive sleep apnea (adult) (pediatric); F17.210 Nicotine dependence, cigarettes, uncomplicated; Z90.710 Acquired absence of both cervix and uterus; I49.3 Ventricular premature depolarization; Z79.84 Long term (current) use of oral hypoglycemic drugs; Z79.899 Other long term (current) drug therapy
CPT/HCPCS: 36415; 71046; 80053; 81003; 85025; 87637; 93005; 96360; 99283; J7030